=== PATIENT | male | born 1960 | race Caucasian/White ===

== ENCOUNTER 2021-01-28 02:35 | Inpatient (IN) | payer BC, SELFPAY ==
[2021-01-28] VITALS (38 sets, daily range): BP systolic 69–141; BP diastolic 40–98; PULSE 59–96; RESP 12–32; TEMP 35.9–36.7; O2SAT 89–99; BMI 36.1; BMI 35.7
--- NOTE | 2021-01-28 02:57 | EKG12_ITS ---
Test Reason : WEAKNESS Blood Pressure : / mmHG Vent. Rate : 091 BPM Atrial Rate : 091 BPM P-R Int : 148 ms QRS Dur : 106 ms QT Int : 378 ms P-R-T Axes : 058 -39 047 degrees QTc Int : 464 ms Normal sinus rhythm Left axis deviation Abnormal ECG Confirmed by FENG STOLL, TREVON ([id number]), features editor TIMOTHY HODGE ([id number]) on 01/29/2021 9:38:40 AM Referred By: NOY Confirmed By:TREVON TONEY MD
--- NOTE | 2021-01-28 02:57 | CT_ITS ---
HISTORY: weakness EXAMINATION: CT Head or Brain W/O Contrast Injection TECHNIQUE: Multiple axial images were obtained of the head without intravenous contrast. A radiation dose optimization technique was used for this scan. IV Contrast dosage and agent: None. COMPARISON: None FINDINGS: BRAIN PARENCHYMA: No intra- or extra-axial hemorrhage. No evidence of acute infarct. No intracranial mass or mass effect. There is preservation of the dunne/white matter interface. Posterior fossa structures are unremarkable. CSF SPACES: Appropriate for age. No hydrocephalus. Basal cisterns are patent. Intracranial atherosclerotic calcifications. CALVARIUM, SKULL BASE, PARANASAL SINUSES AND MASTOID AIR CELLS: Intact calvarium. Oofj-pp-phhzvoee scattered sinus mucosal thickening. Mastoid air cellls are well pneumatized. ORBITS: Unremarkable as visualized. ASPECTS Score for Acute Strokes: NA. CT/Brain/Head without Contrast IMPRESSION: No evidence of acute intracranial abnormality. Sinus inflammatory changes. Individualized dose optimization techniques were used for this CT. at 0411 Reported and signed by: Vasile Mckinney MD Electronically Signed: Vasile Mckinney MD at 4:10 EST Tel , Service support ,
--- NOTE | 2021-01-28 02:59 | EX.ED.DYSGE1 ---
HPI History of Present Illness Chief Complaint: Weakness Informant: patient and spouse/S.O. Narrative Narrative: Patient presents with progressive weakness. Patient really has 2 complaints of weakness. One is focal and one is generalized. He has focal weakness of the left upper extremity. This evidently started after a pneumonia shot in the beginning of November. He had pain. It then progressed to weakness. He has been having trouble gripping and moving it. This has gotten progressively worse. He has been seen in follow-up. He has outpatient EMGs pending. He had x-rays of his neck. He does think it is gotten worse in the past week but it has really been an ongoing issue. He was seen on Friday for this. He was started on gabapentin at that time. Ever since he started the gabapentin he has had generalized weakness. He cannot get out of bed now. With his first dose he had to call his to bring him home from work. He is now not really able to get up and walk around. He was increasing the gabapentin dose as he was supposed to but stopped it 2 tablets a day. He has never been on this before. He had blood work done on Friday that reportedly showed low blood iron and low potassium. He is on iron and potassium replacements. Nothing specifically makes his symptoms better. He thinks the gabapentin caused the overall weakness. Patient does have an occasional cough but no dyspnea. No sore throat. No fevers or chills. No muscle aches. [facility] Medical History High blood pressure Low blood potassium Low iron Lymphoma Umbilical hernia Home Medications hydrochlorothiazide 25 mg PO DAILY #30 tablet 05/22/16 [Rx Last Taken Unknown] lisinopril 20 mg PO DAILY #30 tablet 05/22/16 [Rx Last Taken 07/03/16 08:00] ferrous sulfate [iron] 325 mg PO DAILY 01/28/21 [History Last Taken Unknown] potassium chloride 20 meq PO DAILY 01/28/21 [History Last Taken Unknown] Allergy/AdvReac Type Severity Reaction Status Date / Time No Known Allergies Allergy Verified 07/03/16 10:35 Social History Smoking Status: Never smoker ROS ROS ED Constitutional Constitutional ED: Denies chills or fever(s) Eyes Eyes: Denies blurry vision ENT ENT ED: Denies rhinorrhea or sore throat Cardiovascular Cardiovascular: Denies chest pain or palpitations Respiratory/Chest Respiratory/Chest: Reports cough; Denies dyspnea or sputum Gastrointestinal Gastrointestinal: Denies diarrhea, melena, nausea or vomiting Genitourinary Genitourinary ED: Denies dysuria Musculoskeletal Musculoskeletal: Denies back pain, myalgias or neck pain Integumentary Denies rash Neurologic Neurologic: Reports paresthesias and weakness; Denies headache(s) Endocrine Endocrinology: Denies polydipsia or polyuria Allergic/Immunologic Allergic/Immunologic ED: Denies urticaria EXAM Physical Exam Const Vital Signs: 01/28/21 02:36 01/28/21 02:45 01/28/21 02:47 Temperature 97.7 F L 97.7 F L Temperature Source Temporal Temporal Pulse Rate 93 93 Respiratory Rate 19 H 19 H Respiratory Effort Normal Respiratory Pattern Normal Blood Pressure 141/98 H 141/98 H Blood Pressure Mean 112 112 Pulse Ox 93 93 Oxygen Delivery Method Room Air Room Air 01/28/21 03:46 Temperature 98.0 F Temperature Source Temporal Pulse Rate 96 Respiratory Rate 21 H Respiratory Effort Respiratory Pattern Blood Pressure 134/94 H Blood Pressure Mean 107 Pulse Ox 94 Oxygen Delivery Method Room Air Positive well nourished and well developed General Appearance ED: well developed; Negative for cyanotic HEENT Reports dry mucous membranes Mouth ED: Yes dry mucous membranes Mouth: dry mucous membranes Eyes EOMs intact bilaterally Neck no lymphadenopathy and no JVD Resp normal respiratory effort and clear to auscultation bilaterally Auscultation: Negative for rales, rhonchi or wheezes Cardio regular rate and regular rhythm GI normal to inspection, nondistended, normoactive bowel sounds and non-tender Palpation: soft Extremity Extremity Narrative: Patient does have some bilateral peripheral edema but evidently this is chronic. 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 Neuro oriented x3 Neuro Narrative: Patient is awake alert and oriented x3. His states sometimes she he seems little confused but not now. Patient does have some generalized weakness. 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 Sensorium / Orientation: alert Psych mental status grossly normal Skin no rashes or lesions noted Skin Narrative: No rashes are noted. He does tend to have cool extremities in both hands and both feet. MDM MDM MDM Narrative Medical decision making narrative: Patient's blood work shows normal CBC. Electrolytes showed mild signs of dehydration. Liver function test show no marked abnormalities. Lactate is negative. CT of the head shows no acute process. Chest x-ray shows some basilar scarring or atelectasis. His urine does show sign of infection. At this point we added blood urine cultures and antibiotics. This patient has profound generalized weakness in addition to left upper extremity weakness. This might be partially due to his gabapentin. However, the urine infection can also contribute to this. I think this patient has more than 1 issue ongoing. With his profound weakness he will need to come in the hospital. Case was discussed with the hospitalist. Lab Data Attestation: I reviewed the patient's lab results. Labs: Laboratory Results - last 24 hr 01/28/21 01/28/21 01/28/21 02:50 02:50 03:06 WBC 10.1 RBC 4.63 Hgb 13.4 Hct 40.0 MCV 86.4 MCH 28.9 MCHC 33.5 RDW Std Deviation 40.8 RDW Coeff of Andre 13.0 Plt Count 368 MPV 9.9 Immature Gran % (Auto) 0.500 Neut % (Auto) 82.6 H Lymph % (Auto) 11.1 L Schleicher % (Auto) 5.5 Eos % (Auto) 0.2 Baso % (Auto) 0.1 Absolute Neuts (auto) 8.4 H Absolute Lymphs (auto) 1.13 Nucleated RBC % 0 Sodium 135 L Potassium 3.5 Chloride 96 L Carbon Dioxide 28.0 Anion Gap 11 BUN 24 H Creatinine 0.96 Estim Creat Clear Calc 82.85 Est GFR (MDRD) Af Amer 103 Est GFR (MDRD) Non-Af 85 BUN/Creatinine Ratio 25.1 H Glucose 123 H Lactic Acid 1.7 Calcium 9.1 Total Bilirubin 0.80 AST 57 H ALT 33 Alkaline Phosphatase 105 Troponin I High Sens 10 Total Protein 8.0 Albumin 3.3 Globulin 4.7 H Albumin/Globulin Ratio 0.7 L Urine Color Urine Clarity Urine pH Ur Specific [place] Urine Protein Urine Glucose (UA) Urine Ketones Urine Occult Blood Urine Nitrite Urine Bilirubin Urine Urobilinogen Ur Leukocyte Esterase Urine RBC Urine WBC Ur Squamous Epith Cells Urine Bacteria Urine Mucus 01/28/21 03:43 WBC RBC Hgb Hct MCV MCH MCHC RDW Std Deviation RDW Coeff of Andre Plt Count MPV Immature Gran % (Auto) Neut % (Auto) Lymph % (Auto) Schleicher % (Auto) Eos % (Auto) Baso % (Auto) Absolute Neuts (auto) Absolute Lymphs (auto) Nucleated RBC % Sodium Potassium Chloride Carbon Dioxide Anion Gap BUN Creatinine Estim Creat Clear Calc Est GFR (MDRD) Af Amer Est GFR (MDRD) Non-Af BUN/Creatinine Ratio Glucose Lactic Acid Calcium Total Bilirubin AST ALT Alkaline Phosphatase Troponin I High Sens Total Protein Albumin Globulin Albumin/Globulin Ratio Urine Color Yellow Urine Clarity Cloudy Urine pH 7.0 Ur Specific [place] 1.010 Urine Protein 30 H Urine Glucose (UA) Normal Urine Ketones Negative Urine Occult Blood 150 H Urine Nitrite Negative Urine Bilirubin Negative Urine Urobilinogen Normal Ur Leukocyte Esterase 500 H Urine RBC 5-10 SEEN Urine WBC >100 SEEN Ur Squamous Epith Cells 0-5 SEEN Urine Bacteria 4+ Urine Mucus 0 SEEN Radiography Diagnostic Testing: Clinical Impression(s) from Imaging Studies Brain CT 01/28/21 02:57 IMPRESSION: No evidence of acute intracranial abnormality. Sinus inflammatory changes. Individualized dose optimization techniques were used for this CT. at 0411 Reported and signed by: Vasile Mckinney MD Electronically Signed: Vasile Mckinney MD at 4:10 EST Tel , Service support , Chest X-Ray 01/28/21 03:25 IMPRESSION: Bibasilar linear scarring and/or atelectasis. at 0421 Reported and signed by: Vasile Mckinney MD Electronically Signed: Vasile Mckinney MD at 4:19 EST Tel , Service support , EKG Initial EKG: Comments: EKG done for generalized weakness read by me showed normal sinus rhythm with overall rate of 91. No ectopy. Slight irregularity of baseline but no acute ST elevation or depression. ID interval, QRS duration are normal. QTc is toward the longer and at 484 ms. Discharge Plan Triage Chief Complaint: Weakness ED Provider: Bruno Nuñez Dx/Rx/DC Orders Clinical Impression: Left arm weakness, Acute UTI, Inability to ambulate due to multiple joints Primary Care Provider: Dereck Michael Disposition Disposition: Acute Care Hospital [facility]
[2021-01-28 03:07] LABS: Absolute Lymphocyte Count 1.13 X10^3/uL (0.83-4.51); Absolute Neutrophil Count 8.4 X10^3/uL (2.0-7.7); Basophil# 0.01 X10^3/uL; Basophil% 0.1 % (0-1); Eosinophil# 0.02 X10^3/uL; Eosinophils% 0.2 % (0-5); Hemoglobin 13.4 g/dL (13.0-16.5); Lymphocyte # 1.13 X10^3/ul (0.83-4.51); Lymphocyte % 11.1 % (19-41); Mean Corp Hgb Conc 33.5 g/dL (32-36); Mean Corpuscular Hgb 28.9 pg (27.0-32.0); Mean Corpuscular Volume 86.4 fL (80-94); Mean Platelet Vol. 9.9 fl (6.2-12.0); Monocyte# 0.56 X10^3/uL; Monocyte% 5.5 % (0-10); NRBC Flagged by Analyzer 0 % (0-5); Neutrophil # 8.37 X10^3/uL (2.7-7.7); Neutrophil % 82.6 % (47-70); Platelet Count 368 K/mm3 (150-450); RBC Distribution Width SD 40.8 fl (35.1-43.9); Red Blood Count 4.63 M/mm3 (4.6-6.2); White Blood Count 10.1 K/mm3 (4.4-11.0)
--- NOTE | 2021-01-28 03:25 | RAD_ITS ---
HISTORY: cough EXAMINATION/TECHNIQUE: XR Chest 1 View AP view COMPARISON: Two-view chest x-ray from 05/19/16 FINDINGS: LINES/DEVICES: None. LUNGS: No pulmonary edema. Bibasilar linear opacities. No sizable pleural effusion. No pneumothorax detected. MEDIASTINUM AND CARDIOVASCULAR STRUCTURES: Heart size within normal limits for imaging technique. Central airways and mediastinal contour are unremarkable. BONES AND SOFT TISSUES: Chronic right rib fractures. RAD/Chest 1 View (Portable) IMPRESSION: Bibasilar linear scarring and/or atelectasis. at 0421 Reported and signed by: Vasile Mckinney MD Electronically Signed: Vasile Mckinney MD at 4:19 EST Tel , Service support ,
[2021-01-28 03:37] LABS: ALB/GLOB Ratio 0.7 RATIO (0.9-2.4); AST(SGOT) 57 U/L (15-37); Alanine Aminotransfer ALT/SGPT 33 U/L (16-61); Albumin, Serum 3.3 g/dL (3.2-5.0); Alkaline Phosphatase 105 U/L (45-117); Anion Gap 11 (5-15); BUN 24 mg/dL (7-18); BUN/Creat Ratio 25.1 RATIO (10-20); Calcium,Total 9.1 mg/dL (8.5-10.1); Chloride 96 mmol/L (98-107); Creatinine, Serum 0.96 mg/dL (0.70-1.30); EST Glomerular Filtration Rate 85 mL/min (>60); Est Glom Filt Rate - Afr Amer 103 mL/min (>60); Estimated Creatinine Clearance 82.85 ml/min; Globulin 4.7 g/dL (2.2-4.2); Glucose 123 mg/dL (74-106); Potassium 3.5 mmol/L (3.5-5.1); Sodium Level 135 mmol/L (136-145); Troponin-I HS 10 pg/mL (3.0-78.0)
[2021-01-28 03:47] LABS: Mucous, Urine 0 SEEN /hpf (<or=2+)
[2021-01-28 03:48] LABS: Lactic Acid 1.7 mmol/L (0.4-1.9)
[2021-01-28 04:01] LABS: Color, Urine Yellow (Yellow); Glucose, Dipstick Normal (Normal); Ketone-Dipstick Negative (Negative); Leukocyte Esterase-Dipstick 500 /ul (Negative); Nitrite-Dipstick Negative (Negative); Occult Blood-Urine 150 /ul (Negative); Protein-Dipstick 30 mg/dl (Negative); Urine Bilirubin Dipstick Negative (Negative); Urine Clarity Cloudy (Clear); Urine Urobilinogen Normal (Normal)
[2021-01-28 04:08] LABS: White Blood Cells >100 SEEN /hpf (0-5)
[2021-01-28 04:09] LABS: Bacteria 4+ /hpf (None Seen)
[2021-01-28 04:10] LABS: Red Blood Cells-Urine 5-10 SEEN /hpf (0-5); Squamous Epithelial Cells - UA 0-5 SEEN /hpf (0-5)
[2021-01-28] MEDS: Ceftriaxone 1 GM/50 ML BAG IV (04:41)
--- NOTE | 2021-01-28 05:15 | HP.PCM.HOS_ITS ---
HPI - General General Date of Admission: 01/28/21 Date of Service: 01/28/21 Chief Complaint: Generalized weakness, upper extremity weakness HPI Narrative ARCHIE WILLIS, is a 60 M who presents to the emergency room at [facility] with complaints of increasing generalized weakness and in addition, inability to use his hands bilaterally due to severe weakness. Patient states he got a pneumonia vaccine in November 2020, since that time he has had problems with increasing weakness, over the past few days, patient has been unable to use his hands due to severe weakness, patient was placed on gabapentin this week by his PCP, he is due to have a nerve conduction study done in February of next year. Patient denies any severe lower extremity weakness, he denies any problems with speech or swallowing. Work-up in the emergency room included a CBC which showed a normal white blood cell count, hemoglobin was also normal. Chemistry panel showed a BUN of 24, glucose was 123 and sodium was 135. AST was slightly elevated at 57. Brain CT was obtained which showed no evidence of acute intracranial abnormality. Patient had a chest x-ray that was unremarkable. UA showed 4+ bacteria, over 100 white cells were noted and 5-10 RBCs were noted. Patient will be placed in observation status on [facility], he will be seen by PT and OT, he will be given IV Rocephin, I believe the patient needs to have an MRI of the brain and an MRI of the neck. Patient has severe weakness in his hands he cannot even squeeze my fingers or open his hands fully. [facility] Medical History High blood pressure Low blood potassium Low iron Lymphoma Umbilical hernia Home Medications hydrochlorothiazide 25 mg PO DAILY #30 tablet 05/22/16 [Rx Last Taken Unknown] lisinopril 20 mg PO DAILY #30 tablet 05/22/16 [Rx Last Taken 07/03/16 08:00] ferrous sulfate [iron] 325 mg PO DAILY 01/28/21 [History Last Taken Unknown] potassium chloride 20 meq PO DAILY 01/28/21 [History Last Taken Unknown] Allergy/AdvReac Type Severity Reaction Status Date / Time No Known Allergies Allergy Verified 07/03/16 10:35 Social History Smoking Status: Never smoker ROS Constitutional Constitutional: Reports weakness; Denies anorexia, change in weight, fever(s) or night sweats Eyes Eyes: Denies blurry vision, change in vision, discharge from eye(s) or eye pain ENT HEENT: Denies abnormal hearing, dysphagia or ear pain Cardiovascular Cardiovascular: Denies chest pain, claudication, dyspnea on exertion, edema, lightheadedness, orthopnea or palpitations Respiratory/Chest Respiratory/Chest: Denies cough, hemoptysis, shortness of breath at rest or shortness of breath with exertion Gastrointestinal Gastrointestinal: Denies abdominal pain, constipation, diarrhea, hematemesis, hematochezia, melena, nausea or vomiting Genitourinary Genitourinary: Denies dysuria, hematuria, urinary frequency, urinary hesitancy, urinary incontinence or urinary urgency Musculoskeletal Musculoskeletal: Denies back pain, joint pain, joint stiffness, joint swelling, myalgias or neck pain Neurologic Neurologic: Reports focal weakness; Denies abnormal gait, abnormal speech, dizziness, headache(s), loss of vision, numbness, other visual disturbances, paresthesias, syncope or tingling Psychiatric Psychiatric: Denies anxiety, cognitive impairment, depression, irritability, mood swings or suicidal ideation Endocrine Endocrinology: Denies change in body appearance, cold intolerance, excessive sweating, heat intolerance, polydipsia or polyuria Hematologic/Lymphatic Hematologic/Lymphatic: Denies none, anemia, easy bleeding, easy bruising or lymphadenopathy Allergic/Immunologic Allergic/Immunologic: Denies rhinitis, urticaria, eczemia or asthma Vital Signs Vital Signs Vital Signs: 01/28/21 02:36 01/28/21 02:45 01/28/21 02:47 Temperature 97.7 F L 97.7 F L Temperature Source Temporal Temporal Pulse Rate 93 93 Respiratory Rate 19 H 19 H Respiratory Effort Normal Respiratory Pattern Normal Blood Pressure 141/98 H 141/98 H Blood Pressure Mean 112 112 Pulse Ox 93 93 Oxygen Delivery Method Room Air Room Air 01/28/21 03:46 01/28/21 05:12 Temperature 98.0 F 98.0 F Temperature Source Temporal Temporal Pulse Rate 96 96 Respiratory Rate 21 H 21 H Respiratory Effort Respiratory Pattern Blood Pressure 134/94 H 134/94 H Blood Pressure Mean 107 107 Pulse Ox 94 94 Oxygen Delivery Method Room Air Room Air Weight Weight: 110.9 kg Body Mass Index (BMI) 36.1 Physical Exam Const alert, oriented x3, no apparent distress and average body habitus General Appearance: cooperative, well kempt and well developed Orientation / Consciousness: awake, oriented to person, oriented to place and oriented to time HEENT normocephalic, head/scalp atraumatic, hearing grossly normal bilaterally and moist oral mucous membranes Eyes PERRL, EOMs intact bilaterally and conjunctivae normal Neck nuchal rigidity, supple, no JVD, thyroid normal and no carotid bruits General: trachea midline Resp normal respiratory effort, no retractions, no use of accessory muscles and clear to auscultation bilaterally Auscultation: Negative for rales, rhonchi or wheezes Cardio regular rate, regular rhythm, S1 normal heart sound, S2 normal heart sound, no murmurs, no rub and no gallops GI normal to inspection, nondistended, normoactive bowel sounds, soft to palpation, non-tender and non-distended Extremity normal to inspection and no clubbing, cyanosis or edema Skin no rashes or lesions noted General Skin Exam: no breakdown Neuro oriented x3, CN's II-XII intact bilaterally and no sensory deficits noted Neuro Narrative: Patient is unable to make a fist or open his hands, he is unable to squeeze my fingers with his hands. Patient has arm weakness bilaterally also. Sensorium / Orientation: awake and alert Speech: speech normal Psych thought process normal and affect normal Results Lab / Micro Data Result Diagrams: 01/28/21 02:50 01/28/21 02:50 Labs: Laboratory Results - last 24 hr 01/28/21 02:50: WBC 10.1, RBC 4.63, Hgb 13.4, Hct 40.0, MCV 86.4, MCH 28.9, MCHC 33.5, RDW Std Deviation 40.8, RDW Coeff of Andre 13.0, Plt Count 368, MPV 9.9, Immature Gran % (Auto) 0.500, Neut % (Auto) 82.6 H, Lymph % (Auto) 11.1 L, [place] % (Auto) 5.5, Eos % (Auto) 0.2, Baso % (Auto) 0.1, Absolute Neuts (auto) 8.4 H, Absolute Lymphs (auto) 1.13, Nucleated RBC % 0 01/28/21 02:50: Sodium 135 L, Potassium 3.5, Chloride 96 L, Carbon Dioxide 28.0, Anion Gap 11, BUN 24 H, Creatinine 0.96, Estim Creat Clear Calc 82.85, Est GFR (MDRD) Af Amer 103, Est GFR (MDRD) Non-Af 85, BUN/Creatinine Ratio 25.1 H, Glucose 123 H, Calcium 9.1, Total Bilirubin 0.80, AST 57 H, ALT 33, Alkaline Phosphatase 105, Troponin I High Sens 10, Total Protein 8.0, Albumin 3.3, Globulin 4.7 H, Albumin/Globulin Ratio 0.7 L 01/28/21 03:06: Lactic Acid 1.7 01/28/21 03:43: Urine Color Yellow, Urine Clarity Cloudy, Urine pH 7.0, Ur Specific [place] 1.010, Urine Protein 30 H, Urine Glucose (UA) Normal, Urine Ketones Negative, Urine Occult Blood 150 H, Urine Nitrite Negative, Urine Bilirubin Negative, Urine Urobilinogen Normal, Ur Leukocyte Esterase 500 H, Urine RBC 5-10 SEEN, Urine WBC >100 SEEN, Ur Squamous Epith Cells 0-5 SEEN, Urine Bacteria 4+, Urine Mucus 0 SEEN Micro: Microbiology 01/28/21 03:05 Nasal Secretion SARS-CoV-2 Antigen (Rapid) - Final Radiology Impression Brain CT 01/28/21 02:57 IMPRESSION: No evidence of acute intracranial abnormality. Sinus inflammatory changes. Individualized dose optimization techniques were used for this CT. at 0416 Reported and signed by: Vasile Mckinney MD Electronically Signed: Vasile Mckinney MD at 4:10 EST Tel , Service support , Chest X-Ray 01/28/21 03:25 IMPRESSION: Bibasilar linear scarring and/or atelectasis. at 0421 Reported and signed by: Vasile Mckinney MD Electronically Signed: Vasile Mckinney MD at 4:19 EST Tel , Service support , Assessment & Plan Assessment/Plan (1) Left arm weakness: PLAN: 1. Generalized debility-etiology unclear, patient will be seen by PT and OT. Patient was taking a low dose of gabapentin-100 mg 2-3 times a day, I do not think this is causing his generalized weakness. #2 severe weakness in the upper extremities-etiology unclear, possibly secondary to a systemic disease or degenerative disc disease of his cervical spine. Patient will have an MRI of the cervical spine and an MRI of the brain with contrast. He will be seen by PT and OT #3 acute cystitis-patient will be placed on IV Rocephin #4 essential hypertension #5 iron deficiency anemia by history Charges/Coding Visit Charges OBSV E&M: 87089 Initial observation care L3
--- NOTE | 2021-01-28 05:29 | ED.RN ---
0520 went to take the pt to the floor and found the pt being apneic,did sternal rub and attempted to wke the pt up and he would not respond.dr trejo made aware. 0530 dr trejo at the bedside,attempting to get the pt to respond. smelling salts did not get the pt to arouse,nor did sternal rub. pt placed on 5 lnc.pulse ox 90's.blood sugar 125.
[2021-01-28 05:35] LABS: Bedside Glucose 125 mg/dL (70-110)
[2021-01-28 06:00] LABS: Blood Gas Specimen Type VEN; O2 Delivery Device Cannula; VBG BASE EXCESS -1 mmol/L (-1.0-3.5); VBG Bicarbonate 23 mmol/L (22-26); VBG PO2 66 mmHg (25-40); VBG SO2 94 % (50-70); VBG TCO2 24 mmol/L (23-33); VBG pCO2 32.2 mmHg (41-51); VBG pH 7.45 (7.32-7.42)
[2021-01-28] MEDS: Naloxone 2 MG/2 ML Syringe IV (06:04)
[2021-01-28] MEDS: 0.9% Normal Saline 1,000 ML 999 ML IV ×3 (06:09→21:15)
--- NOTE | 2021-01-28 06:09 | ED.RN ---
pt is awake and talking now.
--- NOTE | 2021-01-28 06:39 | ED.RN ---
pt remains sleepy,but arousable and does talk when asked questions.
[2021-01-28] MEDS: 0.9% Normal Saline 1,000 ML 500 ML IV (07:36)
--- NOTE | 2021-01-28 07:47 | PN.HOSP_ITS ---
Hospitalist Note The patient was admitted by my colleague apartment property manager. Discussed with him. This 60-year-old gentleman who had left arm pneumonia shot in the month of November and after that he developed local pain which progressed to weakness in 1 month time. The weakness kept on progressing and he was prescribed gabapentin in [place] was ordered EMG scheduled in February 2021. Patient denies neck pain or headache. Weakness is to the point left or keep his arms up. There is mild weakness in right upper extremity. No fever, cough, shortness of breath rep orted. Patient had Covid shot 2 doses in his pain 2020. Patient is lethargic, hypotensive, groggy and history mainly taken from patient's . He denies dysuria, increased frequency or urgency but had kidney stone about 4 5 years ago and had lithotripsy. Patient also has history of DVT in right lower extremity a while ago as described by probably 3-5 years ago. On exam General: Drowsy, lethargic, obtunded HEENT: Atraumatic, PERRLA, EOMI, Normocephalic Oral: No Gingival or Mucosal Lesions/ Ulcerations. No cervical lymphadenopathy Neck: Supple, No JVD, Negative Carotid Bruits Lungs: Air entry diminished in bilateral lungs. Decreased ventilatory effort by patient. No crepitation/rhonchi Cardiovascular: Sinus rhythm, Normal S1, Normal S2, No murmurs Abdomen: Bowel Sounds sluggish, Soft, Non Tender, Non-Distended : No renal angle tenderness. No suprapubic tenderness. Extremities: Bilateral lower legs edema, Capillary Refill Less than 3 Seconds Skin: No rashes, No breakdown Musculoskeletal: Tenderness to the left deltoid region and shoulder. Neurological: Cranial nerves II-XII grossly intact, weakness 1/5 of left upper extremity and right upper extremity 3/5. Psych/Mental Status: Lethargic, drowsy Assessment and plan 1. Hypotension, exact etiology unclear possible medication induced rule out sepsis: Patient got Narcan in ED after he was unresponsive for 15 minutes as per the ED nurse report. Empirically is on IV antibiotic and pancultured. Getting IV fluid resuscitation. As per ED nurse, he on 30 mils per KG fluid bolus protocol with last 500 mm going on. Discussed with the division road supervisor. UA shows WBC more than 100, LE but no nitrite. Had IV ceftriaxone in the ED. 2. Left upper extremity weakness, progressive involving right upper and lower extremities: Exact etiology unclear but possible differentials inflammatory polyneuropathy, : Patient might need MRI of bilateral shoulder, MRI brain and neck for further evaluation which I have ordered. CT brain does not show acute intracranial abnormality, sinus instrumentation. Chest x-ray bibasilar linear scarring and atelectasis. Vitamin B12, vitamin D 25-hydroxy and thiamine ordered. ESR CRP and CK ordered. Discussed with division road supervisor and we agreed on SOC consult to suggest further work-up of the issue. Total time of the visit including total time spent in counseling or coordination of care, (more than 50% of the total time, spent in obtaining medical information, history taking from nurses, patient's and other ancillary care providers,explaining to the patient about labs, imaging, diagnosis and management), discussion with consultants, review of labs and imaging is 40 minutes. Clinical Impression(s) from Imaging Studies Brain CT 01/28/21 02:57 IMPRESSION: No evidence of acute intracranial abnormality. Sinus inflammatory changes. Individualized dose optimization techniques were used for this CT. Chest X-Ray 01/28/21 03:25 IMPRESSION: Bibasilar linear scarring and/or atelectasis. at 0421 Reported and signed by: Vasile Mckinney MD Electronically Signed: Vasile Mckinney MD at 4:19 EST Tel , Service support , Microbiology Past 72 Hours 01/28/21 03:05 Nasal Secretion SARS-CoV-2 Antigen (Rapid) - Final Laboratory Results 01/28/21 02:50: WBC 10.1, RBC 4.63, Hgb 13.4, Hct 40.0, MCV 86.4, MCH 28.9, MCHC 33.5, RDW Std Deviation 40.8, RDW Coeff of Andre 13.0, Plt Count 368, MPV 9.9, Immature Gran % (Auto) 0.500, Neut % (Auto) 82.6 H, Lymph % (Auto) 11.1 L, Miller % (Auto) 5.5, Eos % (Auto) 0.2, Baso % (Auto) 0.1, Absolute Neuts (auto) 8.4 H, Absolute Lymphs (auto) 1.13, Nucleated RBC % 0 01/28/21 02:50: Sodium 135 L, Potassium 3.5, Chloride 96 L, Carbon Dioxide 28.0, Anion Gap 11, BUN 24 H, Creatinine 0.96, Estim Creat Clear Calc 82.85, Est GFR (MDRD) Af Amer 103, Est GFR (MDRD) Non-Af 85, BUN/Creatinine Ratio 25.1 H, Glucose 123 H, Calcium 9.1, Total Bilirubin 0.80, AST 57 H, ALT 33, Alkaline Phosphatase 105, Troponin I High Sens 10, Total Protein 8.0, Albumin 3.3, Globulin 4.7 H, Albumin/Globulin Ratio 0.7 L 01/28/21 03:06: Lactic Acid 1.7 01/28/21 03:43: Urine Color Yellow, Urine Clarity Cloudy, Urine pH 7.0, Ur Specific [place] 1.010, Urine Protein 30 H, Urine Glucose (UA) Normal, Urine Ketones Negative, Urine Occult Blood 150 H, Urine Nitrite Negative, Urine Bilirubin Negative, Urine Urobilinogen Normal, Ur Leukocyte Esterase 500 H, Urine RBC 5-10 SEEN, Urine WBC >100 SEEN, Ur Squamous Epith Cells 0-5 SEEN, Urine Bacteria 4+, Urine Mucus 0 SEEN 01/28/21 05:28: POC Glucose 125 H 01/28/21 05:55: Specimen Type PATRICIA, VBG pH 7.45 H, VBG pO2 66 H, VBG HCO3 23, VBG Total CO2 24, VBG O2 Sat (Calc) 94 H, VBG Base Excess -1, POC Mix VBG pCO2 Pt Tmp 32.2 L, O2 Delivery Device Cannula, Liter Flow 5.0 Procedures Hospitalists Procedures: [id number] Prolonged Physician INPT
--- NOTE | 2021-01-28 07:52 | VDLE_ITS ---
Reason For Study: Swelling RIGHT LEFT GSV is normal. GSV is normal. CFV is compressible, spontaneous, phasic, CFV is compressible, spontaneous, phasic, competent and demonstrates normal competent, and demonstrates normal augmentation. augmentation. FV is compressible, spontaneous, phasic, FV is compressible, spontaneous, phasic, competent and demonstrates normal competent and demonstrates normal augmentation. augmentation. POP V is compressible, spontaneous, phasic, PTV is compressible. competent and demonstrates normal Acute deep vein thrombosis is noted in the augmentation. left PopV, T/P Trunk, and PeroV. T/P Trunk is compressible. PTV is compressible. RT PerV is compressible. Acute deep vein thrombosis is noted in the right Gastroc vein. Procedure This is a venous duplex using B-mode, color flow and spectral Doppler. Exam performed portable in ICU/CCU. A preliminary report was called and/or faxed to ICU. VL/Venous Duplex US - Brian Extrem Interpretation Summary Acute deep venous thrombosis right gastrocnemius vein Acute deep vein thrombosis left popliteal, tibioperoneal trunk, and peroneal ve ins Patent and compressible bilateral great saphenous veins Ordering Physician: Yg Power Referring Physician: Dereck Michael Performed By: Rand Rodriguez RVT
--- NOTE | 2021-01-28 08:23 | CON.PCM.CC_ITS ---
Assessment & Plan Assessment/Plan (1) Neuromuscular weakness: PLAN: RECOMMENDATIONS: 1. Obtain neurology consultation. 2. Check urine toxicology screen. 3. Check CRP, ESR and CPK. 4. Fluid resuscitation as ordered. 5. Continue antimicrobials, pending finalized culture results. IMPRESSIONS: 1. Fluid responsive hypotension Although the patient did develop hypotension in the emergency department, with IV fluid resuscitation, the patient's hemodynamic status has stabilized. He has not required vasopressor support. 2. Potential urinary tract infection The patient does have a urinalysis suggestive of possible infection. He is currently on appropriate antimicrobials. He does not have any evidence of endorgan dysfunction. 3. Progressive neuromuscular weakness The patient has noted progressive neuromuscular weakness, initially involving his upper extremities and then later involving his lower extremities, following pneumococcal vaccination in November. Initial concern is for potential atypical GBS. I would recommend that neurology be consulted. Check CRP, ESR and CPK. 4. History of non-Hodgkin's lymphoma/sleep apnea/DVT/hypertension Complicates care, management, recovery and prognosis. Continue appropriate prophylaxis. Pap therapy can be offered to the patient with sleep. Physical therapy to evaluate the patient. This note was generated with [employer] dictation software. It may contain incorrect words, spelling, and punctuation that were not noted in checking the note before signing. HPI Consult Data Date of Consult: 01/28/21 HPI Narrative Reason for Consultation: Hypotension HPI Narrative: The patient is a 60-year-old male, with a history as outlined below, who presented to the emergency department on January 28 with progressive neuromuscular weakness involving his extremities with an inability to ambulate. The patient reported that he received a pneumococcal vaccine in November and since that time he has been experiencing progressive weakness. The weakness itself is descending in nature, originating in his upper extremities and progressing to involve his lower extremities. The patient's medical history is significant for non-Hodgkin's lymphoma, obstructive sleep apnea, DVT and hypertension. On presentation to the emergency department, the patient was initially noted to be afebrile and hemodynamically stable. However, over the course of his stay in the emergency department, his hemodynamics became compromised with labile blood pressures. Initial laboratory evaluation revealed a normal white blood cell count. Chemistry profile was unremarkable. Urinalysis was notable for leukocyte esterase, greater than 100 white blood cells and 4+ urine bacteria. CT head was unremarkable. Chest x-ray demonstrated no acute cardiopulmonary process. The patient received supplemental IV fluid hydration was started on antimicrobials. In light of his hemodynamic instability, the patient was admitted to the medical intensive care unit. ON LICENSE OF [facility] Medical History High blood pressure Low blood potassium Low iron Lymphoma Umbilical hernia Home Medications hydrochlorothiazide 25 mg PO DAILY #30 tablet 05/22/16 [Rx Last Taken Unknown] lisinopril 20 mg PO DAILY #30 tablet 05/22/16 [Rx Last Taken 07/03/16 08:00] ferrous sulfate [iron] 325 mg PO DAILY 01/28/21 [History Last Taken Unknown] potassium chloride 20 meq PO DAILY 01/28/21 [History Last Taken Unknown] Allergy/AdvReac Type Severity Reaction Status Date / Time No Known Allergies Allergy Verified 07/03/16 10:35 Social History Smoking Status: Never smoker ROS Constitutional Constitutional: Reports malaise and weakness Eyes Eyes: Denies blurry vision or change in vision ENT HEENT: Denies dizziness or dysphagia Cardiovascular Cardiovascular: Denies chest pain, dizziness or dyspnea Respiratory/Chest Respiratory/Chest: Denies cough or hemoptysis Gastrointestinal Gastrointestinal: Denies abdominal pain, diarrhea, nausea or vomiting Genitourinary Genitourinary: Denies difficulty urinating Musculoskeletal Musculoskeletal: Denies arthralgias Integumentary Integumentary: Denies lesions, rash or skin ulcer Neurologic Neurologic: Reports abnormal gait Psychiatric Psychiatric: Denies anxiety or depression Endocrine Endocrinology: Reports fatigue Hematologic/Lymphatic Hematologic/Lymphatic: Denies easy bleeding or easy bruising Physical Exam Const no apparent distress Constitutional Narrative: The patient will ultimately arouse and answer questions appropriately. General Appearance: lethargic Nutritional Appearance: obese HEENT normocephalic, head/scalp atraumatic and moist oral mucous membranes Eyes PERRL and EOMs intact bilaterally Neck supple General: trachea midline Chest inspection of chest normal Resp normal respiratory effort Auscultation: Negative for rales, rhonchi or wheezes Cardio regular rate and regular rhythm GI normal to inspection, nondistended, normoactive bowel sounds Extremity General Extremity: edema Skin no rashes or lesions noted Neuro Neuro Narrative: Diffuse neuromuscular weakness noted throughout all extremit ies. Psych Mood & Affect: flat affect Lab / Micro Data Result Diagrams: 01/28/21 02:50 01/28/21 02:50 Labs: Laboratory Results - last 24 hr 01/28/21 02:50: WBC 10.1, RBC 4.63, Hgb 13.4, Hct 40.0, MCV 86.4, MCH 28.9, MCHC 33.5, RDW Std Deviation 40.8, RDW Coeff of Andre 13.0, Plt Count 368, MPV 9.9, Immature Gran % (Auto) 0.500, Neut % (Auto) 82.6 H, Lymph % (Auto) 11.1 L, [place] % (Auto) 5.5, Eos % (Auto) 0.2, Baso % (Auto) 0.1, Absolute Neuts (auto) 8.4 H, Absolute Lymphs (auto) 1.13, Nucleated RBC % 0 01/28/21 02:50: Sodium 135 L, Potassium 3.5, Chloride 96 L, Carbon Dioxide 28.0, Anion Gap 11, BUN 24 H, Creatinine 0.96, Estim Creat Clear Calc 82.85, Est GFR (MDRD) Af Amer 103, Est GFR (MDRD) Non-Af 85, BUN/Creatinine Ratio 25.1 H, Glucose 123 H, Calcium 9.1, Total Bilirubin 0.80, AST 57 H, ALT 33, Alkaline Phosphatase 105, Troponin I High Sens 10, Total Protein 8.0, Albumin 3.3, Globulin 4.7 H, Albumin/Globulin Ratio 0.7 L 01/28/21 03:06: Lactic Acid 1.7 01/28/21 03:43: Urine Color Yellow, Urine Clarity Cloudy, Urine pH 7.0, Ur Specific [place] 1.010, Urine Protein 30 H, Urine Glucose (UA) Normal, Urine Ketones Negative, Urine Occult Blood 150 H, Urine Nitrite Negative, Urine Bilirubin Negative, Urine Urobilinogen Normal, Ur Leukocyte Esterase 500 H, Urine RBC 5-10 SEEN, Urine WBC >100 SEEN, Ur Squamous Epith Cells 0-5 SEEN, Urine Bacteria 4+, Urine Mucus 0 SEEN 01/28/21 05:28: POC Glucose 125 H Micro: Microbiology 01/28/21 03:05 Nasal Secretion SARS-CoV-2 Antigen (Rapid) - Final ABG Data ABG results: ABG 01/28/21 05:55 Specimen Type PATRICIA VBG pH 7.45 H VBG pO2 66 H VBG HCO3 23 VBG Total CO2 24 VBG O2 Sat (Calc) 94 H VBG Base Excess -1 POC Mix VBG pCO2 Pt Tmp 32.2 L O2 Delivery Device Cannula Liter Flow 5.[address] 01/28/21 02:57 IMPRESSION: No evidence of acute intracranial abnormality. Sinus inflammatory changes. Individualized dose optimization techniques were used for this CT. at 0411 Reported and signed by: Vasile Mckinney MD Electronically Signed: Vasile Mckinney MD at 4:10 EST Tel , Service support , Chest X-Ray 01/28/21 03:25 IMPRESSION: Bibasilar linear scarring and/or atelectasis. at 0421 Reported and signed by: Vasile Mckinney MD Electronically Signed: Vasile Mckinney MD at 4:19 EST Tel , Service support , Charges/Coding Visit Charges Inpatient E&M: 50118 Init Hosp L3
--- NOTE | 2021-01-28 08:33 | TELEMED_ITS ---
SOC Telemed has confirmed receipt of a request for visit. This document confirms receipt of the order initiating the consult. To find the results of the consultation, please view the patient's reports for the scanned Telemed Consult.
[2021-01-28] MEDS: 0.9% Normal Saline 1,000 ML 150 ML IV ×3 (08:34→23:53)
[2021-01-28 08:56] LABS: Erythrocyte Sedimentation Rate 52 mm/hr (0-20)
[2021-01-28 09:03] LABS: GGTP 6 U/L (15-85)
[2021-01-28 09:11] LABS: Alcohol, Blood (Medical)-Serum < 3.0 mg/dL
[2021-01-28] MEDS: Heparin Injection (Vial) 5,000 UNIT/ML VIAL 5000 UNIT SC ×2 (09:55→21:44)
[2021-01-28 10:19] LABS: CPK Total, Creatine Kinase 1580 U/L (39-308); Thyroid Stim Hormone (TSH) 1.19 uIU/mL (0.358-3.74)
--- NOTE | 2021-01-28 11:24 | MRI_ITS ---
STUDY: MRI BRAIN WITHOUT CONTRAST REASON FOR EXAM: Male, 60 years old. Predominant LUE descending paralysis -- Mild weakness in other limbs, lethargy. TECHNIQUE: Standardized multiplanar fat and water weighted pulse sequences were obtained. COMPARISON: CT earlier today FINDINGS: Normal size of the ventricles and extra-axial spaces for the patient''s age. Normal white matter tracts of the supratentorial brain. There is no evidence for recent intracranial ischemia or other cause of cytotoxic edema on diffusion weighted imaging (DWI). Normal T2* images of the brain without demonstrated susceptibility artifact. There is no demonstrated hemosiderin stain. Normal bilateral basal ganglia. Normal thalami. There is no extra-axial fluid accumulation. Normal flow voids within the major intracranial circulation suggesting patency by spin echo criteria. Normal sella turcica, pituitary gland, infundibular stalk, optic chiasm and hypothalamus. Normal tectal plate and pineal gland. Normal midbrain, domitila and medulla. Normal cerebellum. Normal basal cisterns. Normal bilateral temporal bones. Normal bilateral internal auditory canals. No demonstrated orbital abnormality, within the constraints of a routine brain study. Normal visualized paranasal sinuses. Normal calvarium and skull base. Normal visualized soft tissue structures. Normal visualized upper cervical spine. MRI/Brain without Contrast IMPRESSION: Normal unenhanced MRI of the brain. Electronically Signed: Justin Orellana MD at 16:17 EST Tel , Service support ,
--- NOTE | 2021-01-28 11:30 | MRI_ITS ---
We are attempting to reach an attending provider to discuss findings. An addendum with communication details will be sent when the communication is complete. STUDY: MRI CERVICAL SPINE WITHOUT CONTRAST REASON FOR EXAM: Male, 60 years old. Predominant LUE descending paralysis -- Mild weakness of the limbs, urine retention, involuntary movements TECHNIQUE: Standardized fat and water weighted pulse sequences were obtained in the sagittal and axial planes. COMPARISON: None FINDINGS: Normal foramen magnum and brainstem-cervical cord junction. Normal craniovertebral junction. Normal anterior atlantoaxial articulation. Normal odontoid process. Normal cervical lordosis. Normal vertebral bodies and posterior osseous elements. C2-3: Normal endplates. Normal disc height, signal and morphology. Normal central canal and intervertebral neural foramina. C3-4: Normal endplates. Normal disc height, signal and morphology. Normal central canal and intervertebral neural foramina. C4-5: 2 mm of anterolisthesis of C4 on C5 with a mild broad disc osteophyte complex produces moderate spinal stenosis with abutment the central spinal cord and mild bilateral neural foraminal stenosis. C5-6: 2 mm of anterolisthesis of C5 on C6 with a mild broad disc osteophyte complex produces moderate spinal stenosis with abutment of the central spinal cord and mild bilateral neural foraminal stenosis. C6-7: Normal endplates. Normal disc height, signal and morphology. Normal central canal and intervertebral neural foramina. C7-T1: Normal endplates. Normal disc height, signal and morphology. Normal central canal and intervertebral neural foramina. Edema of the cervical spinal cord extending from C3 through C5 may represent myelomalacia or less likely tumor. Correlation with MRI with contrast would be useful to exclude mass. Normal visualized soft tissue structures. MRI/Spine Cervical (Routine) IMPRESSION: Degenerative disc disease as described above with abnormal hyperintensity of the cervical spinal cord worrisome for myelomalacia or less likely mass. Correlation with MRI with contrast may be useful. Electronically Signed: Justin Orellana MD at 16:25 EST Tel , Service support ,
[2021-01-28 12:21] LABS: Amphetamine Urine VISTA NEGATIVE (<1000 ng/mL); Barbiturate Urine VISTA NEGATIVE (< 200 ng/mL); Benzodiazepine Urine VISTA NEGATIVE (< 200 ng/mL); Cocaine Urine VISTA NEGATIVE (< 300 ng/mL); Ecstacy Urine VISTA NEGATIVE (< 500 ng/mL); Methadone Urine VISTA NEGATIVE (< 300 ng/mL); PCP Urine VISTA NEGATIVE (< 25 ng/mL); THC Urine VISTA NEGATIVE (< 50 ng/mL); Vista UDS pH Range 8
[2021-01-28 14:27] LABS: CPK Total, Creatine Kinase 2062 U/L (39-308)
[2021-01-28] MEDS: Piperacil/Tazobactam 3.375 GM Q8 PREMIX IV ×2 (15:17→21:44)
[2021-01-28] MEDS: Immune Globulin 20 gm Premixed Solution 54.8 BAG IV (15:22)
--- NOTE | 2021-01-28 16:53 | MRI_ITS ---
STUDY: MRI CERVICAL SPINE WITH CONTRAST REASON FOR EXAM: Male, 60 years old. cervical cord edema 2mm, from C3-5. Predominant LUE descending paralysis -- Mild weakness of the limbs, urine retention, involuntary movements. History of Hodgkin''s lymphoma. TECHNIQUE: Standardized fat and water weighted pulse sequences were obtained in the sagittal and axial following administration of IV DOTAREM 20 CC. COMPARISON: 01/28/2021 FINDINGS: Post contrast sequence was performed to follow-up the contrast examination performed the day before. At C4-C6, there are grade 1 anterolisthesis. There is enhancement of the endplates. There is no demonstrated intradiscal enhancement. There is mild paraspinal enhancement. There is minimal ventral epidural enhancement. There is dorsal epidural enhancement measuring up to 5 mm in thickness. This corresponds to subtle hyperintensity on the precontrast examination. The enhancement along with the anterolisthesis result in compression of the spinal cord. Increased cord signal previously seen, consistent with cord compression. There is posterior interspinous, and erika-facet enhancement as well. MRI/Spine Cervical WITH Contrast IMPRESSION: Epidural enhancement with cord compression. Differential considerations includes neoplastic and infectious disease (epidural abscess). Neurosurgical consultation is recommended. N.B. : The above Results were Read Back by Meera Calvert MD to MD Juan Ramon, and understanding confirmed on 01/29/2021 12:18:28 (ET). Electronically Signed: Meera Calvert MD at 12:19 EST Tel , Service support ,
[2021-01-28] MEDS: Immune Globulin 10 gm Premixed Solution 54.5 BAG IV (17:14)
[2021-01-28] MEDS: Gabapentin 100 MG Capsule PO (18:32)
[2021-01-28 19:27] LABS: Rheumatoid Factor < 10.0 IU/mL (<15)
[2021-01-28] MEDS: 0.9% Saline Lock 10 ML Syringe IV (22:02)
[2021-01-28] MEDS: dexAMETHasone 4 MG/ML Vial IV (22:53)
[2021-01-29] VITALS (23 sets, daily range): BP systolic 118–141; BP diastolic 70–92; PULSE 66–97; RESP 12–93; TEMP 36.4–36.8; O2SAT 90–98
[2021-01-29] MEDS: CHLORHEXIDINE GLUC 2% CLOTH 1 EACH TOWELETTE TOPICAL (00:45)
[2021-01-29 04:23] LABS: Absolute Lymphocyte Count 0.44 X10^3/uL (0.83-4.51); Basophil# 0.01 X10^3/uL; Basophil% 0.1 % (0-1); Hemoglobin 10.1 g/dL (13.0-16.5); Lymphocyte # 0.44 X10^3/ul (0.83-4.51); Lymphocyte % 5.8 % (19-41); Mean Corp Hgb Conc 33.7 g/dL (32-36); Mean Corpuscular Hgb 29.9 pg (27.0-32.0); Mean Corpuscular Volume 88.8 fL (80-94); Mean Platelet Vol. 10.2 fl (6.2-12.0); Monocyte# 0.17 X10^3/uL; Monocyte% 2.2 % (0-10); NRBC Flagged by Analyzer 0 % (0-5); Neutrophil # 6.96 X10^3/uL (2.7-7.7); Neutrophil % 91.2 % (47-70); POSITIVE DIFFERENTIAL YES; Platelet Count 282 K/mm3 (150-450); RBC Distribution Width CV 13.2 % (11.6-14.6); RBC Distribution Width SD 42.4 fl (35.1-43.9); Red Blood Count 3.38 M/mm3 (4.6-6.2); White Blood Count 7.6 K/mm3 (4.4-11.0)
[2021-01-29 04:51] LABS: Differential Indicated SCAN CRITERIA MET
[2021-01-29 04:59] LABS: ALB/GLOB Ratio 0.5 RATIO (0.9-2.4); AST(SGOT) 109 U/L (15-37); Alanine Aminotransfer ALT/SGPT 40 U/L (16-61); Albumin, Serum 2.2 g/dL (3.2-5.0); Alkaline Phosphatase 70 U/L (45-117); Anion Gap 6 (5-15); BUN 24 mg/dL (7-18); BUN/Creat Ratio 24.4 RATIO (10-20); Chloride 109 mmol/L (98-107); Creatinine, Serum 0.98 mg/dL (0.70-1.30); EST Glomerular Filtration Rate 83 mL/min (>60); Est Glom Filt Rate - Afr Amer 100 mL/min (>60); Estimated Creatinine Clearance 81.16 ml/min; Globulin 4.4 g/dL (2.2-4.2); Glucose 101 mg/dL (74-106); Potassium 4.9 mmol/L (3.5-5.1); Protein, Total 6.6 g/dL (6.4-8.2); Sodium Level 139 mmol/L (136-145)
[2021-01-29] MEDS: dexAMETHasone 4 MG/ML Vial IV ×2 (05:42→14:09)
[2021-01-29] MEDS: Piperacil/Tazobactam 3.375 GM Q8 PREMIX IV ×2 (05:44→14:11)
[2021-01-29] MEDS: 0.9% Normal Saline 1,000 ML 150 ML IV (06:33)
--- NOTE | 2021-01-29 07:29 | CPS ---
Notified pt nurse Deena and Solar System Designer Dr. Delatorre that the EMG/NCS cannot be done as inpt. No Dr. to perform EMG or interp study for inpt's.
--- NOTE | 2021-01-29 08:13 | PCM.PN.INT ---
Assessment & Plan Assessment/Plan (1) Neuromuscular weakness: PLAN: RECOMMENDATIONS: 1. Await preliminary neurologic work-up 2. Continue transfer to tertiary center for neurologic work-up 3. Monitor NIF and vital capacity 4. Continue BiPAP with sleep 5. Continue antimicrobials, pending finalized culture results. IMPRESSIONS: 1. Fluid responsive hypotension Although the patient did develop hypotension in the emergency department, with IV fluid resuscitation, the patient's hemodynamic status has stabilized. He has not required vasopressor support. We will continue to monitor closely, but does not appear to be an issue at this time. 2. Potential urinary tract infection The patient does have a urinalysis suggestive of possible infection. He is currently on appropriate antimicrobials. He does not have any evidence of endorgan dysfunction. 3. Progressive neuromuscular weakness The patient has noted progressive neuromuscular weakness, initially involving his upper extremities and then later involving his lower extremities, following pneumococcal vaccination in November. Neurology has been consulted. Respiratory muscles appear to be spared at this time, but we will continue to monitor for possible intubation. Unable to perform EMG studies as an inpatient, but patient reportedly is to be transferred to [facility] when a bed is available. 4. History of non-Hodgkin's lymphoma/sleep apnea/DVT/hypertension Complicates care, management, recovery and prognosis. Continue appropriate prophylaxis. Continue BiPAP with sleep. Physical therapy to evaluate the patient. Subjective Subjective Patient did okay overnight. Patient did have significant hypoxia with sleep, but improved following BiPAP therapy. Patient is currently awaiting transfer to [place] for neurologic work-up. No seizures have been noted overnight. Sonia and vital capacity have remained adequate. Patient is reportedly to have a repeat MRI with contrast later today. Objective Data Objective Data Vital Signs: Vital Signs Temp Pulse Resp BP Pulse Ox 36.8 C 67 25 H 140/73 H 90 01/29/21 04:00 01/29/21 07:00 01/29/21 07:30 01/29/21 07:00 01/29/21 07:00 Oxygen Flow Rate (L/min) 4 Oxygen Delivery Method Bi-pap Weight: 108.664 kg Body Mass Index (BMI) 35.7 Intake & Output: Intake and Output for Last 24 Hours 01/27/21 01/28/21 01/29/21 23:59 23:59 23:59 Intake Total 6400.00 / 6417.50 1050.0 / 1050.0 Output Total 1925 / 2775 1600 / 1600 Balance 4475.00 / 3642.50 -550.0 / -550.0 Lab / Micro Data Result Diagrams: 01/29/21 04:05 01/29/21 04:05 Labs: Laboratory Results - last 24 hr 01/28/21 02:50: ESR 52 H 01/28/21 02:50: Total Creatine Kinase 1580 H, C-React Prot Ext Range 24.20 H, TSH 1.19 01/28/21 08:30: GGT 6 L 01/28/21 08:30: Ethyl Alcohol < 3.0 01/28/21 08:30: Total Creatine Kinase 2062 H, C-React Prot Ext Range 20.20 H 01/28/21 11:45: Urine Opiates Screen NEGATIVE, Urine Methadone Screen NEGATIVE, Ur Barbiturates Screen NEGATIVE, Ur Phencyclidine Scrn NEGATIVE, Ur Amphetamines Screen NEGATIVE, U Methamphetamin-MDMA NEGATIVE, U Benzodiazepines Scrn NEGATIVE, Urine Cocaine Screen NEGATIVE, U Cannabinoids Screen NEGATIVE, Ur Drug Screen Comment 01/28/21 18:40: Rheumatoid Factor < 10.0 01/29/21 04:05: WBC 7.6, RBC 3.38 L, Hgb 10.1 L, Hct 30.0 L, MCV 88.8, MCH 29.9, MCHC 33.7, RDW Std Deviation 42.4, RDW Coeff of Andre 13.2, Plt Count 282, MPV 10.2, Immature Gran % (Auto) 0.700, Neut % (Auto) 91.2 H, Lymph % (Auto) 5.8 L, [place] % (Auto) 2.2, Eos % (Auto) 0.0, Baso % (Auto) 0.1, Absolute Neuts (auto) 7.0, Absolute Lymphs (auto) 0.44 L, Nucleated RBC % 0 01/29/21 04:05: Sodium 139, Potassium 4.9, Chloride 109 H, Carbon Dioxide 24.0, Anion Gap 6, BUN 24 H, Creatinine 0.98, Estim Creat Clear Calc 81.16, Est GFR (MDRD) Af Amer 100, Est GFR (MDRD) Non-Af 83, BUN/Creatinine Ratio 24.4 H, Glucose 101, Calcium 8.0 L, Total Bilirubin 0.50, AST 109 H, ALT 40, Alkaline Phosphatase 70, Total Protein 6.6, Albumin 2.2 L, Globulin 4.4 H, Albumin/Globulin Ratio 0.5 L Micro: Microbiology 01/28/21 03:05 Nasal Secretion SARS-CoV-2 Antigen (Rapid) - Final Radiography Diagnostic Testing: Radiology Impression Brain MRI 01/28/21 11:24 IMPRESSION: Normal unenhanced MRI of the brain. Electronically Signed: Justin Orellana MD at 16:17 EST Tel , Service support , Cervical Spine MRI 01/28/21 11:30 IMPRESSION: Degenerative disc disease as described above with abnormal hyperintensity of the cervical spinal cord worrisome for myelomalacia or less likely mass. Correlation with MRI with contrast may be useful. Electronically Signed: Justin Orellana MD at 16:25 EST Tel , Service support , ADDENDUM: 01/28/21 1653 IMPRESSION: Degenerative disc disease as described above with abnormal hyperintensity of the cervical spinal cord worrisome for myelomalacia or less likely mass. Correlation with MRI with contrast may be useful. N.B. : The above Results were Read Back by Justin Orellana MD to Julio Power MD, MD, and understanding confirmed on 01/28/2021 16:46:08 (ET). Electronically Signed: Justin Orellana MD at 16:25 EST Tel , Service support , Physical Exam Const no apparent distress Constitutional Narrative: Patient appears to be more appropriate today General Appearance: cooperative and comfortable Nutritional Appearance: obese HEENT normocephalic, head/scalp atraumatic and moist oral mucous membranes Eyes PERRL and EOMs intact bilaterally Neck supple General: trachea midline Chest inspection of chest normal Resp normal respiratory effort Auscultation: Negative for rales, rhonchi or wheezes Cardio regular rate and regular rhythm GI normal to inspection, nondistended, normoactive bowel sounds Extremity General Extremity: edema Skin no rashes or lesions noted Neuro Neuro Narrative: Diffuse neuromuscular weakness noted throughout all extremities. No fasciculations appreciated. Psych Mood & Affect: flat affect Charges/Coding Visit Charges Inpatient E&M: 05270 Subs Hosp L3
--- NOTE | 2021-01-29 09:04 | PN.HOSP_ITS ---
Subjective Subjective Follow-up on Hypotension/progressive weakness: Patient was seen and examined. Waiting on [facility] for transfer. Receiving IVIG. BPs are better. Doppler ultrasound of the right lower extremity shows acute DVT Objective Data Objective Data Vital Signs: Vital Signs Temp Pulse Resp BP Pulse Ox 97.6 F L 90 13 126/87 H 96 01/29/21 08:00 01/29/21 08:00 01/29/21 08:00 01/29/21 08:00 01/29/21 08:00 Oxygen Flow Rate (L/min) 2 Oxygen Delivery Method Nasal Cannula Weight: 108.664 kg Body Mass Index (BMI) 35.7 Intake & Output: Intake and Output for Last 24 Hours 01/27/21 01/28/21 01/29/21 23:59 23:59 23:59 Intake Total 6400.00 / 6417.50 1050.0 / 1050.0 Output Total 1925 / 2775 1600 / 1600 Balance 4475.00 / 3642.50 -550.0 / -550.0 Lab / Micro Data Result Diagrams: 01/29/21 04:05 01/29/21 04:05 Labs: Laboratory Results - last 24 hr 01/28/21 02:50: Total Creatine Kinase 1580 H, C-React Prot Ext Range 24.20 H, TSH 1.19 01/28/21 08:30: Ethyl Alcohol < 3.0 01/28/21 08:30: Total Creatine Kinase 2062 H, C-React Prot Ext Range 20.20 H 01/28/21 11:45: Urine Opiates Screen NEGATIVE, Urine Methadone Screen NEGATIVE, Ur Barbiturates Screen NEGATIVE, Ur Phencyclidine Scrn NEGATIVE, Ur Amphetamines Screen NEGATIVE, U Methamphetamin-MDMA NEGATIVE, U Benzodiazepines Scrn NEGATIVE, Urine Cocaine Screen NEGATIVE, U Cannabinoids Screen NEGATIVE, Ur Drug Screen Comment 01/28/21 18:40: Rheumatoid Factor < 10.0 01/29/21 04:05: WBC 7.6, RBC 3.38 L, Hgb 10.1 L, Hct 30.0 L, MCV 88.8, MCH 29.9, MCHC 33.7, RDW Std Deviation 42.4, RDW Coeff of Andre 13.2, Plt Count 282, MPV 10.2, Immature Gran % (Auto) 0.700, Neut % (Auto) 91.2 H, Lymph % (Auto) 5.8 L, [place] % (Auto) 2.2, Eos % (Auto) 0.0, Baso % (Auto) 0.1, Absolute Neuts (auto) 7.0, Absolute Lymphs (auto) 0.44 L, Nucleated RBC % 0 01/29/21 04:05: Sodium 139, Potassium 4.9, Chloride 109 H, Carbon Dioxide 24.0, Anion Gap 6, BUN 24 H, Creatinine 0.98, Estim Creat Clear Calc 81.16, Est GFR (MDRD) Af Amer 100, Est GFR (MDRD) Non-Af 83, BUN/Creatinine Ratio 24.4 H, Glucose 101, Calcium 8.0 L, Total Bilirubin 0.50, AST 109 H, ALT 40, Alkaline Phosphatase 70, Total Protein 6.6, Albumin 2.2 L, Globulin 4.4 H, Albumin/Globulin Ratio 0.5 L Micro: Microbiology 01/28/21 03:05 Nasal Secretion SARS-CoV-2 Antigen (Rapid) - Final Radiography Diagnostic Testing: Radiology Impression Brain MRI 01/28/21 11:24 IMPRESSION: Normal unenhanced MRI of the brain. Electronically Signed: Justin Orellana MD at 16:17 EST Tel , Service support , Cervical Spine MRI 01/28/21 11:30 IMPRESSION: Degenerative disc disease as described above with abnormal hyperintensity of the cervical spinal cord worrisome for myelomalacia or less likely mass. Correlation with MRI with contrast may be useful. Electronically Signed: Justin Orellana MD at 16:25 EST Tel , Service support , ADDENDUM: 01/28/21 1653 IMPRESSION: Degenerative disc disease as described above with abnormal hyperintensity of the cervical spinal cord worrisome for myelomalacia or less likely mass. Correlation with MRI with contrast may be useful. N.B. : The above Results were Read Back by Justin Orellana MD to Julio Power MD, , and understanding confirmed on 01/28/2021 16:46:08 (ET). Electronically Signed: Justin Orellana MD at 16:25 EST Tel , Service support , Physical Exam Narrative Physical exam: General: Alert, Oriented x3, Cooperative, No apparent distress, tired, on 2 L of oxygen HEENT: Atraumatic Oral: Moist Mucosa Neck: Supple Lungs: Diminished to auscultation Cardiovascular: HS I+II, regular, no murmurs Abdomen: Bowel Sounds Present, Soft, Non Tender Extremities: No edema Skin: No rashes, No breakdown Neurological: Alert oriented x3, power in all extremities is 0-1, decreased sensation Assessment & Plan Assessment/Plan (1) Neuromuscular weakness: (2) Hypotension: QUALIFIERS: Hypotension type: unspecified hypotension type Qualified Code(s): I95.9 - Hypotension, unspecified (3) Hypoxia: (4) Acute UTI: PLAN: 1. 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 MRI of the cervical spine shows spinal edema of C3-C5 LP is pending ESR 52, CRP 20.2, PETE is pending, RF less than 10, CPK 2061 Lyme, West Nile disease serology pending Telemetry neurology consulted; not on IVIG No respiratory distress noted overnight EMG pending Transfer to tertiary facility pending Repeat CPK in a.m. 2. Acute DVT of the right lower extremity, likely secondary to immobilization from #1 History of DVT, History of lymphoma Start on heparin drip, follow-up protocol 3. Hypertension shift, unclear etiology, responsive to fluids Continue IV fluids 4. Acute UTI, urine cultures pending Continue on IV Zosyn for now Follow-up on cultures 5. History of lymphoma, has not seen any doctor for years Charges/Coding Visit Charges Inpatient E&M: 88823 Subs Hosp L3
[2021-01-29 10:05] LABS: CPK Total, Creatine Kinase 2171 U/L (39-308)
--- NOTE | 2021-01-29 10:08 | NURSING ---
Erica commercial intelligence manager here to transport pt to MRI
[2021-01-29] MEDS: Immune Globulin 20 gm Premixed Solution 90.3 BAG IV (11:48)
[2021-01-29] MEDS: Heparin Injection (Vial) 5,000 UNIT/ML VIAL 8000 UNIT IV (11:50)
[2021-01-29] MEDS: Gabapentin 100 MG Capsule PO (11:51)
[2021-01-29 12:12] LABS: International Normalized Ratio 1.2; Prothrombin Time (Protime)PT. 14.6 SECONDS (11.7-14.9)
[2021-01-29 12:13] LABS: Partial Thromboplast Time 24.6 Seconds (24.1-36.2)
--- NOTE | 2021-01-29 13:57 | CASEMGMT ---
Tertiary hospitals in-network with patients insurance: [place], [facility], [facility], [facility], [facility], [facility], and [place].
[2021-01-29] MEDS: Immune Globulin 10 gm Premixed Solution 90.3 BAG IV (14:31)
--- NOTE | 2021-01-29 15:43 | DCINST_ITS ---
Discharge Instructions Diet Discharge Diet: No restrictions Activity Discharge Activity: Return to Normal Activity Follow Up Care Test Results: Test results from this visit will be discussed in further detail at your follow-up appointment, if applicable. Discharge Plan Admission Admit Date/Time: 01/28/21 07:01 Primary Reason for Your Visit: Acute epidural abscess Attending Provider: Nataliia Johnson Primary Care Provider: Dereck Michael Consulting Providers: Lane Delatorre ; Roni Gilbert ; Linda Dietrich TECHNICAL SUPPORT COORDINATOR Discharge Orders/Prescriptions Prescriptions: No Action lisinopril 20 MG tablet 20 mg PO DAILY Qty: 30 RF: 0 hydrochlorothiazide 25 MG tablet 25 mg PO DAILY Qty: 30 RF: 0 ferrous sulfate [iron] 325 mg (65 mg iron) Tablet 325 mg PO DAILY RF: 0 potassium chloride 20 mEq tablet extended release 20 meq PO DAILY RF: 0 Referrals / Follow Up: Dereck Michael MD [Primary Care Provider] - Disposition Disposition (needs filled in before D/C Order can be placed): Acute Care [facility]
--- NOTE | 2021-01-29 15:44 | DS.PCM_ITS ---
Providers Date of Admission: 01/28/21 Date of Discharge: 01/29/21 Primary Care Physician: Dr. Dereck Michael MD Consultations 01/28/21 08:03 Consult: Medicaid [place] / Pulmonary Medicine Routine Consulting Provider: Pulmonary Medicine erlin [place] Reason for Consult: hypotension EMERGENT Consult: No MD Notified: Yes Date Notified: 01/28/21 Time Notified: 07:09 Method of Notification: Verbal Reason For Visit: WEAKNESS Diagnosis Discharge Diagnosis (1) Neuromuscular weakness: Status: Acute Code(s): G70.9 - Myoneural disorder, unspecified (2) Hypotension: Status: Acute Code(s): I95.9 - Hypotension, unspecified Qualifiers: Hypotension type: unspecified hypotension type Qualified Code(s): I95.9 - Hypotension, unspecified (3) Hypoxia: Status: Acute Code(s): R09.02 - Hypoxemia (4) Acute UTI: Status: Acute Code(s): N39.0 - Urinary tract infection, site not specified Medications at Discharge Home Medications hydrochlorothiazide 25 mg PO DAILY #30 tablet 05/22/16 lisinopril 20 mg PO DAILY #30 tablet 05/22/16 ferrous sulfate [iron] 325 mg PO DAILY 01/28/21 potassium chloride 20 meq PO DAILY 01/28/21 Hospital Course Operations None Procedures None Summary of Care Provided Minutes Spent on Discharge: 50 Hospital Course: 60-year-old male with past medical history of lymphoma, not on treatment, not followed up with a physician in so many years who comes with generalized weakness and inability to use his hands. Patient gave a history of having had pneumococcal vaccine November 2020. He stated that he has had progressive weakness. He was seen by a physician a week ago and put on gabapentin. He has since had worsening weakness with inability to use his hands. His work-up in the emergency room was unremarkable for chemistries. CT of the brain showed no acute abnormality. Admitting chest x-ray was unremarkable. Urinalysis was suggestive of acute UTI. Patient was started on IV antibiotics. Patient was noted shortly in the ED to be hypotensive and had a period of unresponsiveness that resolved in 15 minutes. He was admitted to the ICU. Telemetry neurology was consulted and recommended MRI of the brain as well as MRI of the spine and other work-up for possible GBS. Patient was started on IVIG. MRI of the brain was unremarkable. Initial MRI of the spine shows C3-C6 edema. MRI of the spine with contrast was suggestive of epidural enhancement with cord compression. Patient's physical exam shows power of 0-1 in all extremities, decreased sensation. Patient was emergently transferred for neurosurgical evaluation. Physical Exam Narrative See progress note of the day Weight / BMI Weight Weight: 108.664 kg Body Mass Index (BMI) 35.7 ABG / Lab / Microbiology Data Result Diagrams: 01/29/21 04:05 01/29/21 04:05 Laboratory: Laboratory Results - last 24 hr 01/28/21 18:40: Rheumatoid Factor < 10.0 01/29/21 04:05: WBC 7.6, RBC 3.38 L, Hgb 10.1 L, Hct 30.0 L, MCV 88.8, MCH 29.9, MCHC 33.7, RDW Std Deviation 42.4, RDW Coeff of Andre 13.2, Plt Count 282, MPV 10.2, Immature Gran % (Auto) 0.700, Neut % (Auto) 91.2 H, Lymph % (Auto) 5.8 L, [place] % (Auto) 2.2, Eos % (Auto) 0.0, Baso % (Auto) 0.1, Absolute Neuts (auto) 7.0, Absolute Lymphs (auto) 0.44 L, Nucleated RBC % 0 01/29/21 04:05: Sodium 139, Potassium 4.9, Chloride 109 H, Carbon Dioxide 24.0, Anion Gap 6, BUN 24 H, Creatinine 0.98, Estim Creat Clear Calc 81.16, Est GFR (MDRD) Af Amer 100, Est GFR (MDRD) Non-Af 83, BUN/Creatinine Ratio 24.4 H, Glucose 101, Calcium 8.0 L, Total Bilirubin 0.50, AST 109 H, ALT 40, Alkaline Phosphatase 70, Total Protein 6.6, Albumin 2.2 L, Globulin 4.4 H, [place] umin/Globulin Ratio 0.5 L 01/29/21 04:05: Total Creatine Kinase 2171 H 01/29/21 11:45: PT 14.6, INR 1.2, APTT 24.6 Microbiology: Microbiology 01/28/21 03:43 Urine, Clean Catch Urine Culture - Preliminary Presumptive E. coli 01/28/21 03:05 Nasal Secretion SARS-CoV-2 Antigen (Rapid) - Final Radiography Diagnostic Testing: Radiology Impression Venous Doppler Study 01/28/21 07:52 Interpretation Summary Acute deep venous thrombosis right gastrocnemius vein Acute deep vein thrombosis left popliteal, tibioperoneal trunk, and peroneal veins Patent and compressible bilateral great saphenous veins Ordering Physician: Yg Power Referring Physician: Dereck Michael Performed By: Rand Rodriguez RVT Brain MRI 01/28/21 11:24 IMPRESSION: Normal unenhanced MRI of the brain. Electronically Signed: Justin Orellana MD at 16:17 EST Tel , Service support , Cervical Spine MRI 01/28/21 11:30 IMPRESSION: Degenerative disc disease as described above with abnormal hyperintensity of the cervical spinal cord worrisome for myelomalacia or less likely mass. Correlation with MRI with contrast may be useful. Electronically Signed: Justin Orellana MD at 16:25 EST Tel , Service support , ADDENDUM: 01/28/21 1653 IMPRESSION: Degenerative disc disease as described above with abnormal hyperintensity of the cervical spinal cord worrisome for myelomalacia or less likely mass. Correlation with MRI with contrast may be useful. N.B. : The above Results were Read Back by Justin Orellana MD to Julio Power MD, MD, and understanding confirmed on 01/28/2021 16:46:08 (ET). Electronically Signed: Justin Orellana MD at 16:25 EST Tel , Service support , Cervical Spine MRI 01/28/21 16:53 IMPRESSION: Epidural enhancement with cord compression. Differential considerations includes neoplastic and infectious disease (epidural abscess). Neurosurgical consultation is recommended. N.B. : The above Results were Read Back by Meera Calvert MD to MD Juan Ramon, and understanding confirmed on 01/29/2021 12:18:28 (ET). Electronically Signed: Meera Calvert MD at 12:19 EST Tel , Service support , ADDENDUM: 01/29/21 1226 IMPRESSION: Epidural enhancement with cord compression. Differential considerations includes neoplastic and infectious disease (epidural abscess). Neurosurgical consultation is recommended. N.B. : The above Results were Read Back by Meera Calvert MD to MD Juan Ramon, and understanding confirmed on 01/29/2021 12:18:28 (ET). Electronically Signed: Meera Calvert MD at 12:19 EST Tel , Service support , D/C Instructions Discharge Diet: No restrictions Meaningful Use Info Meaningful Use Diagnoses (Choose all that apply): None applicable Discharge Plan Admission Admit Date/Time: 01/28/21 07:01 Primary Reason for Your Visit: Acute epidural abscess Attending Provider: Nataliia Johnson Primary Care Provider: Dereck Michael Consulting Providers: Lane Delatorre ; Roni Gilbert ; Linda Dietrich WIRE MACHINE OPERATOR Discharge Orders/Prescriptions Prescriptions: No Action lisinopril 20 MG tablet 20 mg PO DAILY Qty: 30 RF: 0 hydrochlorothiazide 25 MG tablet 25 mg PO DAILY Qty: 30 RF: 0 ferrous sulfate [iron] 325 mg (65 mg iron) Tablet 325 mg PO DAILY RF: 0 potassium chloride 20 mEq tablet extended release 20 meq PO DAILY RF: 0 Referrals / Follow Up: Dereck Michael MD [Primary Care Provider] - Disposition Disposition (needs filled in before D/C Order can be placed): Acute Care [facility] Charges/Coding Visit Charges Inpatient E&M: 85488 Disch Hosp
[2021-01-30 13:33] LABS: ANTINUCLEAR ANTIBODIES DIRECT Negative (Negative)
[2021-02-07 18:07] LABS: Lyme IgG P18 Ab Absent (.); Lyme IgG P23 Ab Absent (.); Lyme IgG P28 Ab Absent (.); Lyme IgG P30 Ab Absent (.); Lyme IgG P39 Ab Absent (.); Lyme IgG P41 Ab Absent (.); Lyme IgG P45 Ab Absent (.); Lyme IgG P58 Ab Absent (.); Lyme IgG P66 Ab Absent (.); Lyme IgG P93 Ab Present (.); Lyme IgM P23 Ab Absent (.); Lyme IgM P39 Ab Absent (.); Lyme IgM P41 Ab Absent (.)
[2021-02-07 20:10] LABS: Lyme IgG WB Interpretation Negative (.); Lyme IgM WB Interpretation Negative (.); West Nile Virus, IgG Negative (Negative); West Nile Virus, IgM Negative (Negative)
== END 2021-01-29 16:40 | disposition short-term general hospital (02) | DRG 74 ==
LOC: ED 03:30 → MS3 04:42 → ICU 09:12
PROVIDERS: Internal Medicine; Internal Medicine Critical Care Medicine; Admitting Provider Internal Medicine; Emergency Provider Emergency Medicine; PCP Family Medicine; Visit Provider Internal Medicine
DX: G70.9 Myoneural disorder, unspecified (principal); G12.29 Other motor neuron disease; N30.00 Acute cystitis without hematuria; C85.90 Non-Hodgkin lymphoma, unspecified, unspecified site; I82.432 Acute embolism and thrombosis of left popliteal vein; I82.452 Acute embolism and thrombosis of left peroneal vein; I82.461 Acute embolism and thrombosis of right calf muscular vein; I95.9 Hypotension, unspecified; G47.33 Obstructive sleep apnea (adult) (pediatric); M43.12 Spondylolisthesis, cervical region; I10 Essential (primary) hypertension; D50.9 Iron deficiency anemia, unspecified; Z79.899 Other long term (current) drug therapy; Z86.718 Personal history of other venous thrombosis and embolism
CPT/HCPCS: 36415; 36600; 70450; 70551; 71045; 72141; 72142; 80053; 80307; 81001; 82077; 82550; 82803; 82962; 82977; 83605; 84443; 84484; 85025; 85610; 85652; 85730; 86038; 86140; 86225; 86235; 86431; 86617; 86788; 86789; 87040; 87086; 87088; 87186; 87426; 93005; 93970; 94002; 94003; 94150; 94762; 97162; 97166; 97802; 99285; A9575; J7030; A4216; J1568; J2310

== ENCOUNTER 2021-08-10 19:57 | Emergency (ER) | payer BC, SELFPAY ==
[2021-08-10 19:58] VITALS: BP 121/81; PULSE 104; RESP 18; TEMP 37.6; O2SAT 92; BMI 29.8
--- NOTE | 2021-08-10 20:13 | EDS_ITS ---
HPI History of Present Illness Chief Complaint: Complaint Informant: patient and spouse/S.O. 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 Patient has been hospitalized recently with recurrent UTIs and had a suprapubic catheter placed in early July at [facility]. He is scheduled to have it changed when he sees Dr. Jeong as an outpatient in the coming weeks. states she noted decreased urine output from the suprapubic catheter yesterday. Has not been putting out good urine today. He is losing some urine from his penis today. [facility] Medical History High blood pressure Low blood potassium Low iron Lymphoma Umbilical hernia Home Medications ferrous sulfate 325 mg (65 mg iron) tablet (iron) 325 mg PO DAILY 01/28/21 [Hist ory Last Taken Unknown] allopurinol 300 mg tablet 1 tab PO DAILY 08/10/21 [History Last Taken Unknown] apixaban 5 mg tablet (Eliquis) 1 tab PO DAILY 08/10/21 [History Last Taken Unknown] baclofen 10 mg tablet 1 tab PO DAILY 08/10/21 [History Last Taken Unknown] gabapentin 300 mg capsule cap 08/10/21 [History Last Taken Unknown] pantoprazole 40 mg tablet,delayed release tab PO 08/10/21 [History Last Taken Unknown] sulfamethoxazole 800 mg-trimethoprim 160 mg tablet 1 tab PO DAILY 08/10/21 [History Last Taken Unknown] Allergy/AdvReac Type Severity Reaction Status Date / Time No Known Allergies Allergy Verified 07/03/16 10:35 Social History Smoking Status: Never smoker ROS ROS ED Constitutional Constitutional ED: Denies chills or fever(s) Eyes Eyes: Denies change in vision or discharge from eye(s) ENT ENT ED: Denies discharge from eye(s), rhinorrhea or sore throat Cardiovascular Cardiovascular: Denies chest pain or palpitations Respiratory/Chest Respiratory/Chest: Denies cough or dyspnea Gastrointestinal Gastrointestinal: Denies abdominal pain, diarrhea, nausea or vomiting Genitourinary Genitourinary ED: Reports other Details: Decreased output suprapubic catheter Musculoskeletal Musculoskeletal: Denies back pain or extremity pain Integumentary Denies Abrasions or rash Neurologic Neurologic: Denies headache(s) Psychiatric Psychiatric: Denies anxiety or depression Allergic/Immunologic Allergic/Immunologic ED: Denies lip swelling or urticaria EXAM Physical Exam Const Vital Signs: 08/10/21 19:58 Temperature 99.6 F H Temperature Source Temporal Pulse Rate 104 H Respiratory Rate 18 Blood Pressure 121/81 H Blood Pressure Mean 94 Pulse Ox 92 Oxygen Delivery Method Nasal Cannula Oxygen Flow Rate (L/min) 2 Positive well nourished and well developed General Appearance ED: well developed HEENT Reports normocephalic and head/scalp atraumatic Eyes PERRL and EOMs intact bilaterally Neck supple Chest Wall inspection of chest normal and palpation of chest normal Resp normal respiratory effort and clear to auscultation bilaterally Cardio regular rate and regular rhythm GI normal to inspection, nondistended, normoactive bowel sounds GI Narrative: Suprapubic catheter site clean with no sign of infection. Palpation: soft Back/Spine Negative for no CVA tenderness Extremity Extremity Narrative: Chronic paraplegia Neuro oriented x3 Sensorium / Orientation: alert Psych mental status grossly normal Skin no rashes or lesions noted MDM [facility] Treatment and Re-Evaluation Narrative: Nursing staff was able to break up some crystallization in the suprapubic catheter. Catheter was irrigated with good return of urine. At this time catheter will remain in place until he sees his urologist next week as scheduled. Discharge Plan Triage Chief Complaint: Complaint ED Provider: Eloisa Ryan Dx/Rx/DC Orders Clinical Impression: Blocked suprapubic catheter Instructions: ED [place]ira Catheter, Care Prescriptions: No Action ferrous sulfate [iron] 325 mg (65 mg iron) Tablet 325 mg PO DAILY sulfamethoxazole-trimethoprim 800-160 mg tablet 1 tab PO DAILY baclofen 10 mg tablet 1 tab PO DAILY pantoprazole 40 mg tablet,delayed release (DR/EC) PO gabapentin 300 mg capsule allopurinol 300 mg tablet 1 tab PO DAILY Eliquis 5 mg tablet 1 tab PO DAILY Primary Care Provider: Dereck Michael Referrals: Dereck Michael MD [Primary Care Provider] - Activity Restrictions/Additional Instructions: Follow-up with your urologist as scheduled. Disposition Disposition: Home, Self Care
--- NOTE | 2021-08-10 21:19 | ED.RN ---
patient presents with clogged catheter. suprapubic catheter irrigated and flushed with sterile water. 400 water used with urine return noted. patient tolerated well. no clots noted or blood noted. bladder scan prior to irrigation was 450 and post irrigated showed 45ml. catheter tubing irrigated due to inability to replace due to luer lock and no supplies in the hospital to replace. Dr. Ryan made aware of this
[2021-08-10 22:27] VITALS: BP 104/73; PULSE 83; RESP 18; O2SAT 93
== END 2021-08-10 22:29 | disposition home or self-care (01) ==
LOC: ED 21:10
PROVIDERS: Emergency Provider Emergency Medicine; PCP Family Medicine; Visit Provider Emergency Medicine
DX: T83.89XA Other specified complication of genitourinary prosthetic devices, implants and grafts, initial encounter (principal); X58.XXXA Exposure to other specified factors, initial encounter; I10 Essential (primary) hypertension; Z79.01 Long term (current) use of anticoagulants; Z79.899 Other long term (current) drug therapy
CPT/HCPCS: 99284

== ENCOUNTER → 2021-08-21 | Outpatient (CLI) | payer BC, SELFPAY ==
[2021-08-21 14:36] LABS: Absolute Lymphocyte Count 1.21 X10^3/uL (0.83-4.51); Absolute Neutrophil Count 2.7 X10^3/uL (2.0-7.7); Basophil# 0.04 X10^3/uL; Basophil% 0.8 % (0-1); Eosinophil# 0.48 X10^3/uL; Eosinophils% 9.8 % (0-5); Hematocrit 30.8 % (40-54); Hemoglobin 9.5 g/dL (13.0-16.5); Lymphocyte # 1.21 X10^3/ul (0.83-4.51); Lymphocyte % 24.6 % (19-41); Mean Corp Hgb Conc 30.8 g/dL (32-36); Mean Corpuscular Hgb 26.6 pg (27.0-32.0); Mean Corpuscular Volume 86.3 fL (80-94); Mean Platelet Vol. 9.7 fl (6.2-12.0); Monocyte# 0.48 X10^3/uL; Monocyte% 9.8 % (0-10); NRBC Flagged by Analyzer 0 % (0-5); Neutrophil # 2.69 X10^3/uL (2.7-7.7); Neutrophil % 54.6 % (47-70); Platelet Count 345 K/mm3 (150-450); RBC Distribution Width SD 53.5 fl (35.1-43.9); Red Blood Count 3.57 M/mm3 (4.6-6.2); White Blood Count 4.9 K/mm3 (4.4-11.0)
[2021-08-21 14:52] LABS: ALB/GLOB Ratio 0.8 RATIO (0.9-2.4); AST(SGOT) 21 U/L (15-37); Alanine Aminotransfer ALT/SGPT 15 U/L (16-61); Albumin, Serum 2.5 g/dL (3.2-5.0); Alkaline Phosphatase 64 U/L (45-117); Anion Gap 6 (5-15); BUN 18 mg/dL (7-18); BUN/Creat Ratio 38.4 RATIO (10-20); Calcium,Total 9.8 mg/dL (8.5-10.1); Chloride 104 mmol/L (98-107); Creatinine, Serum 0.47 mg/dL (0.70-1.30); EST Glomerular Filtration Rate 194 mL/min (>60); Est Glom Filt Rate - Afr Amer 235 mL/min (>60); Glucose 88 mg/dL (74-106); Potassium 3.9 mmol/L (3.5-5.1); Protein, Total 5.5 g/dL (6.4-8.2); Sodium Level 140 mmol/L (136-145); Uric Acid 3.6 mg/dL (3.5-7.2)
[2021-08-21 20:37] LABS: IRON, SERUM 27 ug/dL (35-150)
[2021-08-21 20:38] LABS: PERCENT IRON SATURATION 14.9 % (15.0-55.0)
[2021-08-22 07:47] LABS: Vitamin B12 1016 pg/mL (211-911)
== END | disposition home or self-care (01) ==
LOC: LABSPEC 14:18
PROVIDERS: PCP Family Medicine; Referring Provider Family Medicine; Visit Provider Family Medicine
DX: C83.30 Diffuse large B-cell lymphoma, unspecified site (principal); E79.0 Hyperuricemia without signs of inflammatory arthritis and tophaceous disease; K25.9 Gastric ulcer, unspecified as acute or chronic, without hemorrhage or perforation; I10 Essential (primary) hypertension; Z79.899 Other long term (current) drug therapy
CPT/HCPCS: 80053; 82607; 83540; 83550; 83735; 84550; 85025

== ENCOUNTER 2021-08-28 15:32 | Emergency (ER) | payer BC, SELFPAY ==
[2021-08-28 15:33] VITALS: BP 155/100; PULSE 109; RESP 18; TEMP 36.6; BMI 29.9
--- NOTE | 2021-08-28 15:47 | EX.ED.DYSGE1 ---
HPI History of Present Illness Chief Complaint: Complaint Detail of Chief Complaint: Occluded suprapubic catheter Informant: patient and spouse/S.O. Onset/Context/Timing Onset: Today (Has not functioned properly since yesterday) Context: Sudden Onset Timing: Continuous Quality: Occluded suprapubic catheter Location: Suprapubic cath daughter Current Severity: Severe Maximum Severity: Severe Worsened by: Obstructed catheter Relieved by: Nothing Associated Symptoms Associated Symptoms: None Narrative Narrative: Patient is a 61-year-old male with a suprapubic catheter. Super catheter was placed to beginning of July. states he had an indwelling Nogueira. This was changed to a suprapubic because of recurrent infections. Visiting nurse was unable to remove the suprapubic catheter. Patient and state no urine output for 12 to 24 hours. He has no other symptoms or complaints Prior similar symptoms: No Recent Illness/Hospitalization: Yes [facility] Medical History High blood pressure Low blood potassium Low iron Lymphoma Umbilical hernia Home Medications ferrous sulfate 325 mg (65 mg iron) tablet (iron) 325 mg PO DAILY 01/28/21 [History Last Taken Unknown] allopurinol 300 mg tablet 1 tab PO DAILY 08/10/21 [History Last Taken Unknown] apixaban 5 mg tablet (Eliquis) 1 tab PO DAILY 08/10/21 [History Last Taken Unknown] baclofen 10 mg tablet 1 tab PO DAILY 08/10/21 [History Last Taken Unknown] gabapentin 300 mg capsule cap 08/10/21 [History Last Taken Unknown] pantoprazole 40 mg tablet,delayed release tab PO 08/10/21 [History Last Taken Unknown] sulfamethoxazole 800 mg-trimethoprim 160 mg tablet 1 tab PO DAILY 08/10/21 [History Last Taken Unknown] Allergy/AdvReac Type Severity Reaction Status Date / Time No Known Allergies Allergy Verified 07/03/16 10:35 Social History (Updated 08/28/21 @ 15:[address] Christopher Petty MD) household members: spouse Smoking Status: Never smoker substance use type: does not use ROS ROS ED Constitutional Constitutional ED: Denies chills, fever(s), subjective, sweats or weight loss Gastrointestinal Gastrointestinal: Denies abdominal pain, melena, nausea or vomiting Genitourinary Genitourinary ED: Reports other Details: Obstructed suprapubic catheter Integumentary Denies abscess, Abrasions or rash EXAM Physical Exam Const Vital Signs: 08/28/21 15:33 08/28/21 15:33 Temperature 97.8 F 97.8 F Temperature Source Temporal Temporal Pulse Rate 109 H 109 H Respiratory Rate 18 18 Blood Pressure 155/100 H 155/100 H Blood Pressure Mean 118 118 Positive well nourished and well developed; Negative for obese, cachectic, contractures or unkempt General Appearance ED: well developed and NAD; Negative for unkempt, cachectic, contractures, cyanotic or diaphoretic Nutritional Appearance: Negative for cachectic or obese HEENT Reports moist mucous membranes Negative for trauma or tenderness Eyes PERRL and EOMs intact bilaterally General Eye ED: Negative for pale conjunctiva or scleral icterus Neck no lymphadenopathy and supple Resp normal respiratory effort and clear to auscultation bilaterally Cardio regular rhythm, S1 normal heart sound and S2 normal heart sound Rate: tachycardic Neuro oriented x3, CN's II-XII intact bilaterally and No no sensory deficits noted Sensorium / Orientation: alert Motor Exam: Negative for strength 5/5 throughout Psych Appearance: Negative for unkempt Skin no rashes or lesions noted and no wounds General Skin Exam: Negative for jaundice MDM MDM MDM Narrative Medical decision making narrative: No urine is noted in the Nogueira leg bag. The suprapubic catheter was changed by me. This was performed without difficulty. Patient has free flow of urine after changing the Nogueira. Discharge Plan Triage Chief Complaint: Complaint ED Provider: Christopher Petty Dx/Rx/DC Orders Clinical Impression: Complication, blocked Nogueira catheter, Encounter for Nogueira catheter replacement Instructions: ED Nogueira Catheter, Care Prescriptions: No Action ferrous sulfate [iron] 325 mg (65 mg iron) Tablet 325 mg PO DAILY sulfamethoxazole-trimethoprim 800-160 mg tablet 1 tab PO DAILY baclofen 10 mg tablet 1 tab PO DAILY pantoprazole 40 mg tablet,delayed release (DR/EC) PO gabapentin 300 mg capsule allopurinol 300 mg tablet 1 tab PO DAILY Eliquis 5 mg tablet 1 tab PO DAILY Primary Care Provider: Dereck Michael Referrals: Dereck Michael MD [Primary Care Provider] - As Needed Disposition Disposition: Home, Self Care
--- NOTE | 2021-08-28 16:14 | NURSING ---
CALLED [facility], ETA IS 30 MIN
== END 2021-08-28 16:56 | disposition home or self-care (01) ==
LOC: ED 15:56
PROVIDERS: Emergency Provider Emergency Medicine; PCP Family Medicine; Visit Provider Emergency Medicine
DX: T83.091A Other mechanical complication of indwelling urethral catheter, initial encounter (principal); Z79.899 Other long term (current) drug therapy; Z96.0 Presence of urogenital implants
CPT/HCPCS: 99282

== ENCOUNTER 2021-09-18 10:19 | Emergency (ER) | payer BC, SELFPAY ==
[2021-09-18] VITALS (10 sets, daily range): BP systolic 122–125; BP diastolic 82–99; PULSE 77–99; RESP 14–26; TEMP 36.2–36.8; O2SAT 91–97; BMI 27.1
--- NOTE | 2021-09-18 10:46 | RAD_ITS ---
STUDY: X-RAY CHEST REASON FOR EXAM: Male, 61 years old. Cough, confusion TECHNIQUE: Single AP portable view of the chest. COMPARISON: Comparison is made with prior study 01/28/2021. FINDINGS: EKG electrode are seen. There is 6.5 cm x 2.6 cm pleural-based mass in the lateral aspect of the right hemithorax with underlying rib destruction. There is blunting of the right costophrenic angle. Focal atelectasis and/or infiltrate at the left lung base with blunting of the left costophrenic angle. Normal size heart. Normal mediastinum and colt. Normal visualized pulmonary arteries. There is atherosclerotic calcification of the aortic arch with tortuosity. There are degenerative changes of the visualized thoracic spine. Prior fusion of the lower cervical spine. There is no demonstrated abnormality of the visualized soft tissue structures of the upper abdomen. RAD/Chest 1 View (Portable) IMPRESSION: Pleural-based mass in the lateral aspect of the right hemithorax with underlying rib destruction with some blunting of both costophrenic angles and atelectasis and/or infiltrate at the left lung base. Electronically Signed: Arthur Goodwin MD at 12:05 EDT ,
--- NOTE | 2021-09-18 10:46 | EKG12_ITS ---
Test Reason : CONFUSION Blood Pressure : / mmHG Vent. Rate : 093 BPM Atrial Rate : 093 BPM P-R Int : 152 ms QRS Dur : 114 ms QT Int : 348 ms P-R-T Axes : 053 -42 072 degrees QTc Int : 432 ms Normal sinus rhythm Left axis deviation Minimal voltage criteria for LVH, may be normal variant ( R in aVL ) Abnormal ECG Confirmed by FENG STOLL, TREVON ([id number]), restaurant expeditor TIMOTHY HODGE ([id number]) on 09/21/2021 1:53:52 PM Referred By: Brea Confirmed By:TREVON TONEY MD
--- NOTE | 2021-09-18 10:46 | CT_ITS ---
EXAM: CT HEAD WITHOUT INTRAVENOUS CONTRAST CLINICAL INDICATION: altered mental status TECHNIQUE: Multiple axial images were obtained of the head without intravenous contrast. This CT exam was performed using one or more of the following dose reduction techniques: automated exposure control, adjustment of the mA and/or kV according to patient size, and/or use of iterative reconstruction technique. This report was created using [employer] report generation technology. COMPARISON: 01/28/2021 FINDINGS: BRAIN AND EXTRA-AXIAL SPACES: Unremarkable. No intra- or extra-axial hemorrhage. No evidence of acute infarct. No intracranial mass or mass effect. There is preservation of the dunne/white matter interface. Posterior fossa structures are unremarkable. Ventricles are appropriate for age. No hydrocephalus. Basal cisterns are patent. BONES/JOINTS: Unremarkable. No discrete lytic or blastic abnormalities. SINUSES: Unremarkable as visualized. Clear. MASTOID AIR CELLS: Unremarkable. Clear. ORBITS: Visualized globes, extraocular muscles, optic nerves and retrobulbar fat appear unremarkable. CT/Brain/Head without Contrast IMPRESSION: Negative head/brain CT without intravenous contrast. There has been no significant change from reference exam. Electronically Signed: Angelo Connolly MD at 12:18 EDT ,
--- NOTE | 2021-09-18 10:58 | EDS_ITS ---
HPI History of Present Illness Chief Complaint: Confusion Informant: patient and spouse/S.O. 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 He is cared for at home by his . He has a suprapubic catheter, it is small and has been plugged several times and he has also developed infections, is concerned he has developed another 1. She did some type of dipstick test at home for infection on his urine that she states was positive today. Confused off and on for the past 4 days. Along with a cough, no dyspnea, the patient denies any pain or other symptoms right now except for some chronic discomfort from a rotator cuff injury in his left shoulder that is no different than usual. He denies any abdominal pain. She has noted no fevers or chills. He is on 2 L nasal cannula at home all of the time. [facility] Medical History Bleeding ulcer Diffuse large B cell lymphoma DVT (deep venous thrombosis) High blood pressure Low blood potassium Low iron Lymphoma Suprapubic catheter Umbilical hernia Home Medications ferrous sulfate 325 mg (65 mg iron) tablet (iron) 325 mg PO DAILY 01/28/21 [History Last Taken Unknown] allopurinol 300 mg tablet 1 tab PO DAILY 08/10/21 [History Last Taken Unknown] apixaban 5 mg tablet (Eliquis) 1 tab PO DAILY 08/10/21 [History Last Taken Unknown] baclofen 10 mg tablet 1 tab PO DAILY 08/10/21 [History Last Taken Unknown] gabapentin 300 mg capsule cap 08/10/21 [History Last Taken Unknown] pantoprazole 40 mg tablet,delayed release tab PO 08/10/21 [History Last Taken Unknown] sulfamethoxazole 800 mg-trimethoprim 160 mg tablet 1 tab PO DAILY 08/10/21 [History Last Taken Unknown] ciprofloxacin HCl 500 mg tablet 500 mg PO BID #20 TABLETS 09/18/21 [Rx Last Taken Unknown] Allergy/AdvReac Type Severity Reaction Status Date / Time No Known Allergies Allergy Verified 07/03/16 10:35 Social History household members: spouse Smoking Status: Never smoker substance use type: does not use ROS ROS ED Constitutional Constitutional ED: Denies chills or fever(s) Eyes Eyes: Denies change in vision or diplopia ENT ENT ED: Denies rhinorrhea or sore throat Cardiovascular Cardiovascular: Denies chest pain or palpitations Respiratory/Chest Respiratory/Chest: Denies cough or dyspnea Gastrointestinal Gastrointestinal: Denies abdominal pain, diarrhea, nausea or vomiting Genitourinary Genitourinary ED: Denies flank pain, hematuria or low back pain Musculoskeletal Musculoskeletal: Reports extremity pain; Denies back pain or neck pain Integumentary Denies abscess or rash Neurologic Neurologic: Reports confusion, paresthesias and weakness; Denies headache(s) Psychiatric Psychiatric: Denies anxiety or suicidal thoughts EXAM Physical Exam Const Vital Signs: 09/18/21 10:24 09/18/21 10:46 09/18/21 10:46 Temperature 98.1 F 97.9 F Temperature Source Oral Temporal Pulse Rate 99 Respiratory Rate 26 H Blood Pressure 122/82 H Blood Pressure Mean 95 Pulse Ox 91 Oxygen Delivery Method Nasal Cannula Nasal Cannula Oxygen Flow Rate (L/min) 2 2 09/18/21 11:46 09/18/21 12:46 09/18/21 13:46 Temperature 98.2 F 98.1 F 98.0 F Temperature Source Temporal Temporal Temporal Pulse Rate Respiratory Rate Blood Pressure Blood Pressure Mean Pulse Ox Oxygen Delivery Method Oxygen Flow Rate (L/min) 09/18/21 12:19 Temperature Temperature Source Pulse Rate 77 Respiratory Rate 14 Blood Pressure 125/99 H Blood Pressure Mean 107 Pulse Ox 97 Oxygen Delivery Method Nasal Cannula Oxygen Flow Rate (L/min) 2 Positive well nourished and well developed General Appearance ED: well developed and NAD HEENT Reports moist mucous membranes normocephalic and atraumatic Eyes PERRL and EOMs intact bilaterally Neck full ROM and supple Resp normal respiratory effort and clear to auscultation bilaterally Cardio regular rate, regular rhythm and no murmurs Rate: Negative for tachycardic GI non-tender and non-distended GI Narrative: Suprapubic catheter site benign without any leakage or erythema or tenderness. Auscultation: normoactive bowel sounds Palpation: soft Back/Spine no CVA tenderness General Back: other FROM Extremity normal to inspection General Extremety ED: Negative for edema, pulses abnormal or tenderness General Extremity: Negative for edema or pulses abnormal Neuro CN's II-XII intact bilaterally Neuro Narrative: Able to wiggle/move all 4 extremities distally. Weak throughout. Decreased sensation all 4 extremities. Patient is disoriented to the month, he is 1 month off of the current month, but is otherwise oriented x3. Sensorium / Orientation: awake and alert Skin no rashes or lesions noted and no wounds MDM MDM MDM Narrative Medical decision making narrative: Took some time to get urine from this patient, since the rest of the labs looked unremarkable except for mild prerenal azotemia. Apparently the patient was putting out some urine from his suprapubic catheter and also urinating out other urine from his penis, eventually we were able to get some but it was voided by the patient we were not able to collect a significant amount from his suprapubic catheter. It appears to be infected. He does have a cough with some occasional phlegm that the states he seems to have difficulty getting up but he has had no dyspnea or fevers/chills, and the 1 view chest x-ray which on my interpretation shows some atelectasis in the left base, I do not think is indicative of infiltrate/pneumonia. He is mildly leukopenic but not neutropenic, nor is he clinically septic. His vital signs have remained normal on his home 2 L nasal cannula, he has remained in the mid 90s and keenly alert. He has been a little disoriented at times according to the . I offered admission, she prefers to take him home as long as it is safe, I believe that it is right now. I gave him Rocephin IV 1 g after sending blood and urine cultures, I will send him home on ciprofloxacin which she has tolerated in the past. Lab Data Attestation: I reviewed the patient's lab results. Labs: Laboratory Results - last 24 hr 09/18/21 09/18/21 09/18/21 11:08 11:08 11:08 WBC 4.2 L RBC 3.92 L Hgb 10.5 L Hct 33.7 L MCV 86.0 MCH 26.8 L MCHC 31.2 L RDW Std Deviation 55.4 H RDW Coeff of Andre 17.5 H Plt Count 326 MPV 9.4 Immature Gran % (Auto) 0.200 Neut % (Auto) 53.1 Lymph % (Auto) 25.5 [place] % (Auto) 14.7 H Eos % (Auto) 6.0 H Baso % (Auto) 0.5 Absolute Neuts (auto) 2.2 Absolute Lymphs (auto) 1.06 Nucleated RBC % 0 Sodium 140 Potassium 3.4 L Chloride 103 Carbon Dioxide 34.0 H Anion Gap 3 L BUN 24 H Creatinine 0.70 Estim Creat Clear Calc 119.52 Est GFR (MDRD) Af Amer 147 Est GFR (MDRD) Non-Af 122 BUN/Creatinine Ratio 34.1 H Glucose 109 H Lactic Acid 0.8 Calcium 12.3 H Total Bilirubin 0.30 AST 18 ALT 16 Alkaline Phosphatase 77 Troponin I High Sens 7 Total Protein 6.5 Albumin 2.9 L Globulin 3.6 Albumin/Globulin Ratio 0.8 L Urine Color Urine Clarity Urine pH Ur Specific [place] Urine Protein Urine Glucose (UA) Urine Ketones Urine Occult Blood Urine Nitrite Urine Bilirubin Urine Urobilinogen Ur Leukocyte Esterase Urine RBC Urine WBC Ur Squamous Epith Cells Urine Bacteria Urine Mucus 09/18/21 13:49 WBC RBC Hgb Hct MCV MCH MCHC RDW Std Deviation RDW Coeff of Andre Plt Count MPV Immature Gran % (Auto) Neut % (Auto) Lymph % (Auto) [place] % (Auto) Eos % (Auto) Baso % (Auto) Absolute Neuts (auto) Absolute Lymphs (auto) Nucleated RBC % Sodium Potassium Chloride Carbon Dioxide Anion Gap BUN Creatinine Estim Creat Clear Calc Est GFR (MDRD) Af Amer Est GFR (MDRD) Non-Af BUN/Creatinine Ratio Glucose Lactic Acid Calcium Total Bilirubin AST ALT Alkaline Phosphatase Troponin I High Sens Total Protein Albumin Globulin Albumin/Globulin Ratio Urine Color Straw Urine Clarity Sl. Cloudy Urine pH 6.5 Ur Specific [place] 1.015 Urine Protein 100 H Urine Glucose (UA) Normal Urine Ketones Negative Urine Occult Blood 250 H Urine Nitrite Negative Urine Bilirubin Negative Urine Urobilinogen Normal Ur Leukocyte Esterase 500 H Urine RBC 10-25 SEEN Urine WBC >100 SEEN Ur Squamous Epith Cells 0 SEEN Urine Bacteria 1+ Urine Mucus 0 SEEN Radiography Diagnostic Testing: Clinical Impression(s) from Imaging Studies Brain CT 09/18/21 10:46 IMPRESSION: Negative head/brain CT without intravenous contrast. There has been no significant change from reference exam. Electronically Signed: Angelo Connolly MD at 12:18 EDT , Chest X-Ray 09/18/21 10:46 IMPRESSION: Pleural-based mass in the lateral aspect of the right hemithorax with underlying rib destruction with some blunting of both costophrenic angles and atelectasis and/or infiltrate at the left lung base. Electronically Signed: Arthur Goodwin MD at 12:05 EDT , Rhythm Strip Rhythm Strip: Sinus Rhythm Rate: 90 Ectopy: None EKG Initial EKG: Attestation: I personally reviewed and interpreted this EKG as follows: Interpretation: Sinus Rhythm, No Acute Injury Pattern and LAFB Discharge Plan Triage Chief Complaint: Confusion ED Provider: Gael Tam Dx/Rx/DC Orders Clinical Impression: Acute UTI, URI (upper respiratory infection), Atelectasis of left lung, Quadriplegia, Disorientation Instructions: Understanding Urinary Tract ... Prescriptions: New ciprofloxacin HCl [ciprofloxacin HCl] 500 mg tablet 500 mg PO BID Qty: 20 0RF No Action ferrous sulfate [iron] 325 mg (65 mg iron) Tablet 325 mg PO DAILY sulfamethoxazole-trimethoprim 800-160 mg tablet 1 tab PO DAILY baclofen 10 mg tablet 1 tab PO DAILY pantoprazole 40 mg tablet,delayed release (DR/EC) PO gabapentin 300 mg capsule allopurinol 300 mg tablet 1 tab PO DAILY Eliquis 5 mg tablet 1 tab PO DAILY Primary Care Provider: Dereck Michael Referrals: Dereck Michael MD [Primary Care Provider] - (2-3 days for reevaluation and review of culture results) Disposition Disposition: Home, Self Care
[2021-09-18 11:21] LABS: Absolute Lymphocyte Count 1.06 X10^3/uL (0.83-4.51); Absolute Neutrophil Count 2.2 X10^3/uL (2.0-7.7); Basophil# 0.02 X10^3/uL; Basophil% 0.5 % (0-1); Eosinophil# 0.25 X10^3/uL; Hematocrit 33.7 % (40-54); Hemoglobin 10.5 g/dL (13.0-16.5); Lymphocyte # 1.06 X10^3/ul (0.83-4.51); Lymphocyte % 25.5 % (19-41); Mean Corp Hgb Conc 31.2 g/dL (32-36); Mean Corpuscular Hgb 26.8 pg (27.0-32.0); Mean Platelet Vol. 9.4 fl (6.2-12.0); Monocyte# 0.61 X10^3/uL; Monocyte% 14.7 % (0-10); NRBC Flagged by Analyzer 0 % (0-5); Neutrophil % 53.1 % (47-70); Platelet Count 326 K/mm3 (150-450); RBC Distribution Width CV 17.5 % (11.6-14.6); RBC Distribution Width SD 55.4 fl (35.1-43.9); Red Blood Count 3.92 M/mm3 (4.6-6.2); White Blood Count 4.2 K/mm3 (4.4-11.0)
[2021-09-18 11:39] LABS: ALB/GLOB Ratio 0.8 RATIO (0.9-2.4); AST(SGOT) 18 U/L (15-37); Alanine Aminotransfer ALT/SGPT 16 U/L (16-61); Albumin, Serum 2.9 g/dL (3.2-5.0); Alkaline Phosphatase 77 U/L (45-117); Anion Gap 3 (5-15); BUN 24 mg/dL (7-18); BUN/Creat Ratio 34.1 RATIO (10-20); Calcium,Total 12.3 mg/dL (8.5-10.1); Chloride 103 mmol/L (98-107); EST Glomerular Filtration Rate 122 mL/min (>60); Est Glom Filt Rate - Afr Amer 147 mL/min (>60); Estimated Creatinine Clearance 119.52 ml/min; Globulin 3.6 g/dL (2.2-4.2); Glucose 109 mg/dL (74-106); Potassium 3.4 mmol/L (3.5-5.1); Protein, Total 6.5 g/dL (6.4-8.2); Sodium Level 140 mmol/L (136-145); Troponin-I HS 7 pg/mL (3.0-78.0)
[2021-09-18 11:45] LABS: Lactic Acid 0.8 mmol/L (0.4-1.9)
[2021-09-18 13:52] LABS: Mucous, Urine 0 SEEN /hpf (<or=2+); Squamous Epithelial Cells - UA 0 SEEN /hpf (0-5)
[2021-09-18 14:13] LABS: Color, Urine Straw (Yellow); Glucose, Dipstick Normal (Normal); Ketone-Dipstick Negative (Negative); Leukocyte Esterase-Dipstick 500 /ul (Negative); Nitrite-Dipstick Negative (Negative); Occult Blood-Urine 250 /ul (Negative); Protein-Dipstick 100 mg/dl (Negative); Specific Gravity, Urine 1.015 (1.002-1.030); Urine Bilirubin Dipstick Negative (Negative); Urine Clarity Sl. Cloudy (Clear); Urine Urobilinogen Normal (Normal); Urine pH 6.5 (5.0 - 8.0)
[2021-09-18 14:33] LABS: Bacteria 1+ /hpf (None Seen); Red Blood Cells-Urine 10-25 SEEN /hpf (0-5); White Blood Cells >100 SEEN /hpf (0-5)
[2021-09-18] MEDS: Ceftriaxone 1 GM/50 ML BAG IV (15:06)
--- NOTE | 2021-09-21 12:27 | ED.RN ---
THIS RN SPOKE WITH OF PATIENT, WILI ABOUT PT AND HIS LAB RESULTS DUE TO HIM COUGHING. SHE VERBALIZES UNDERSTANDING OF RESULTS AND STATES SHE WILL CONSOLE MANAGER THE NEWLY PRESCRIBED ANTIBIOTICS AND DISCONTINUE THE CIPRO INSTRUCTED BY DR. GREY
== END 2021-09-18 16:35 | disposition home or self-care (01) ==
PROVIDERS: Emergency Provider Emergency Medicine; PCP Family Medicine; Visit Provider Emergency Medicine
DX: T83.511A Infection and inflammatory reaction due to indwelling urethral catheter, initial encounter (principal); G82.50 Quadriplegia, unspecified; C85.90 Non-Hodgkin lymphoma, unspecified, unspecified site; N39.0 Urinary tract infection, site not specified; J06.9 Acute upper respiratory infection, unspecified; R41.0 Disorientation, unspecified; J98.11 Atelectasis; Z92.21 Personal history of antineoplastic chemotherapy; X58.XXXA Exposure to other specified factors, initial encounter
CPT/HCPCS: 70450; 71045; 80053; 81001; 83605; 84484; 85025; 87040; 87077; 87086; 87088; 87186; 87811; 93005; 96361; 96365; 99285; J7030; A4216